=== PATIENT | female | born 1930 | race Caucasian/White ===

== ENCOUNTER 2018-11-08 00:17 | Observation (INO) ==
[2018-11-08] MEDS ORDERED: Ondansetron 4 MG/2 ML VIAL IVP PRN ×2 (00:40→19:06)
[2018-11-08] MEDS: 0.9 % Sodium Chloride 1,000 ML IVC SCH ×3 (02:09→19:08)
[2018-11-08 05:22] LABS: Basophils # 0.1 K/mcL (0.0-0.2); Basophils % 0.8 %; Eosinophils # 0.3 K/mcL (0.0-0.6); Eosinophils % 4.3 %; Hematocrit 29.6 % (35.3-44.9); Hemoglobin 8.8 g/dL (11.5-15.4); Immature Granulocytes % 0.4 % (0-4); Lymphocytes # 1.4 K/mcL (0.6-4.6); Lymphocytes % 18.9 %; Mean Corpuscular HGB Conc 29.7 g/dL (31.6-35.5); Mean Corpuscular Hemoglobin 25.1 pg (28.0-33.3); Mean Corpuscular Volume 84.3 fL (83.0-100.0); Mean Platelet Volume 10.2 fL (9.4-12.4); Monocytes # 0.4 K/mcL (0.0-1.3); Monocytes % 5.9 %; Neutrophils # 5.1 K/mcL (1.6-8.9); Platelet Count 203 K/mcL (140-400); Red Blood Count 3.51 M/mcL (3.82-4.97); Red Cell Distribution Width 17.4 % (11.5-14.5); Segmented Neutrophils % 69.7 %; White Blood Count 7.3 K/mcL (4.3-11.1)
[2018-11-08 05:40] LABS: Alanine Aminotransferase 7 Units/L (7-52); Albumin 3.5 g/dL (3.5-5.7); Albumin/Globulin Ratio 1.5 (1.1-2.2); Alkaline Phosphatase 65 Units/L (34-104); Aspartate Amino Transferase 10 Units/L (13-39); BUN/Creatinine Ratio 13 (6-26); Bilirubin,Total 0.4 mg/dL (0.3-1.0); Blood Urea Nitrogen 12 mg/dL (8-23); Calcium 8.5 mg/dL (8.6-10.3); Carbon Dioxide 25 mEq/L (23-29); Chloride 108 mEq/L (98-107); Globulin 2.4 g/dL (2.4-3.5); Glucose 105 mg/dL (70-105); Lipase 93 Units/L (11-82); Osmolality,Calculated 286 (280-300); Potassium 4.1 mEq/L (3.5-5.1); Sodium 138 mEq/L (136-145); Total Protein 5.9 g/dL (6.4-8.9); eGFR For African Americans > 60 (> 60); eGFR For Non-African Americans 57 (> 60)
[2018-11-08] MEDS: Piperacillin/Tazobactam 3.375 GM in 0.9 % Sodium Chloride Mini Bag 100 ML IVPB SCH ×2 (08:42→19:08)
[2018-11-08] MEDS ORDERED: Isovue-300 50ML VIAL ONE (14:51)
[2018-11-08] MEDS ORDERED: CefOXitin 1,000 MG VIAL ONE (15:00)
[2018-11-08] MEDS ORDERED: *HR* FentaNYL (PF) 100 MCG/2 ML VIAL ONE (15:03)
[2018-11-08] MEDS ORDERED: *HR* Propofol 200 MG/20 ML VIAL IVP ONE (15:03)
[2018-11-08] MEDS ORDERED: *HR* Rocuronium Bromide 50 MG/5 ML VIAL ONE (15:04)
[2018-11-08] MEDS ORDERED: Lidocaine -MPF 2% 2 ML VIAL ONE (15:04)
[2018-11-08] MEDS ORDERED: *HR* OxyCODONE Immed Rel 5 MG TABLET PO PRN (15:13)
[2018-11-08] MEDS ORDERED: *HR* Labetalol 20 MG/4 ML SYRINGE IVP PRN (15:13)
[2018-11-08] MEDS ORDERED: Ondansetron 4 MG/2 ML VIAL IVP ONE (15:13)
[2018-11-08] MEDS ORDERED: *HR* Promethazine 25 MG/ML VIAL IVP PRN (15:13)
[2018-11-08] MEDS ORDERED: CefOXitin 2,000 MG VIAL ONE (15:39)
[2018-11-08] MEDS ORDERED: EPHEDrine 50 MG/ML VIAL ONE (15:50)
[2018-11-08] MEDS ORDERED: Ondansetron 4 MG/2 ML VIAL ONE (15:53)
[2018-11-08] MEDS ORDERED: Dexamethasone 4 MG/ML VIAL ONE (16:05)
[2018-11-08] MEDS ORDERED: Neostigmine Methylsulfate 3 MG/3 ML SYRINGE ONE (16:23)
[2018-11-08] MEDS: *HR* HYDROmorphone (PF) 1 MG/ML SYRINGE IVP PRN ×2 (16:58→17:31)
[2018-11-09] MEDS: Piperacillin/Tazobactam 3.375 GM in 0.9 % Sodium Chloride Mini Bag 100 ML IVPB SCH ×2 (00:06→08:13)
[2018-11-09] MEDS: 0.9 % Sodium Chloride 1,000 ML IVC SCH ×2 (00:08→05:35)
[2018-11-09 06:43] VITALS: BP 180/78
== END 2018-11-09 11:08 | disposition home or self-care (01) ==
LOC: 3ANU
PROVIDERS: ADMIT Surgery; ATTEND Surgery

== ENCOUNTER 2018-11-28 14:57 | Inpatient (IN) ==
--- NOTE | 2018-11-28 15:58 | Emergency Department Note ---
Disposition Clinical Impression: Anemia Qualifiers: Anemia type: unspecified type Qualified Code(s): D64.9 - Anemia, unspecified GI bleed Qualifiers: GI bleed type/associated pathology: unspecified gastrointestinal hemorrhage type Qualified Code(s): K92.2 - Gastrointestinal hemorrhage, unspecified Disposition: Admitted As Inpatient Condition: Fair Referrals: Nilson Joseph MD [Primary Care Provider] - Forms: ED Satisfaction Letter Time of Disposition: 18:40 General Adult HPI - General Chief complaint: ED Recheck/Abnormal Lab/Rx Stated complaint: Abnormal Labs - Hemoglobin Time Seen by Provider: 11/28/18 15:17 Source: patient Limitations: no limitations Nursing Notes Reviewed: Yes Vital Signs Reviewed: Yes - History of Present Illness HPI Narrative: Presents with fatigue and dyspnea going on for the last 1 week and is constant and she did get her blood drawn today and hemoglobin reportedly was 7.3 so she was sent here. She does have a bruise on the dorsal aspect of her right hand but denies any blood in the urine or stool. No dark tarry stools. No bleeding of the gums when she brushes her teeth. She does not have any nose limits. States has not had anemia past. Denies any pain in the head, neck, chest, abdom en or back. Social history: Stopped smoking in 1979, drinks 1 glass of wine with dinner but not every night. Is here with the son and daughter Pain Scale: 0 - Related Data Previous Rx's Medication Instructions Recorded Oxycodone HCl/Acetaminophen 1 each PO Q6HR PRN 6 Days #20 11/09/18 [Percocet 5-325 mg Tablet] tablet Allergies Allergy/AdvReac Type Severity Reaction Status Date / Time No Known Allergies Allergy Verified 11/28/18 15:03 All systems ED: reviewed and negative except as stated. Past Medical History - Past Medical History Medical history: Reports: GERD, hypertension, thyroid disease Surgical history: Reports: hysterectomy Psychiatric history: Reports: no psych history - Social History Smoking Status: Never smoker Smokeless Tobacco Status: No Alcohol use: Reports: occasionally Drug use: Reports: none Physical Exam CONSTITUTIONAL: Alert and oriented X3, well-nourished, well appearing, in no apparent distress HEAD: Normocephalic; atraumatic. EYES: PERRL, no scleral icterus. NOSE: The nose is normal in appearance without rhinorrhea RESP: Normal chest excursion with respiration; breath sounds clear and equal bilaterally; no wheezes, rhonchi, or rales CARD: Regular rhythm, without murmurs, rub or gallop ABD: Non-distended; non-tender, soft,without rigidity, rebound or guarding SKIN: Normal for age and race; warm and dry; no apparent lesions except for 1 small bruise 1.5 cm in diameter on the dorsal aspect of the right hand - General Limitations: no limitations General appearance: alert, in no apparent distress Course Vital Signs Temperature 97.3 F L 11/28/18 15:01 Pulse Rate 77 11/28/18 15:01 Respiratory Rate 16 11/28/18 15:01 Blood Pressure 182/73 11/28/18 15:01 O2 Sat by Pulse Oximetry 100 11/28/18 15:01 Temperature 98.1 F 11/28/18 18:33 Pulse Rate 72 11/28/18 18:33 Respiratory Rate 18 11/28/18 18:33 Blood Pressure 154/66 11/28/18 18:33 O2 Sat by Pulse Oximetry 100 11/28/18 17:10 Oxygen Delivery Oxygen Delivery Room Air Medical Decision Making - MDM Narrative Medical decision making narrative: Labs will be done including hemoglobin and type and screen and saline well was placed and results are pending 1558 The patient does have some right-sided abdominal pain which developed after arr ival at the site of the cholecystectomy which was done about 3 weeks ago and with the new anemia which is not microcytic I will order a IV contrast CT to make sure there is no intra-abdominal bleeding. Results pending. Rectal exam has been done and there is brown stool on the glove. The Hemoccult is positive 1702 I spoke with the hospitalist who accepts the patient for admission due to the si gnificant anemia, the fact that the anemia is not a microcytic anemia suggestive more of an acute blood loss, the fact that she does have positive blood in the stool and that she is 88 years old. 183 - Medical Records Medical records reviewed: Yes I reviewed the patient's medical records. - Lab Data Lab results reviewed: Yes I reviewed the patient's lab results. Result diagrams: 11/28/18 16:00 11/28/18 16:00 Lab Results 11/28/18 11/28/18 11/28/18 Range/Units 16:00 16:00 16:00 WBC 4.6 (4.3-11.1) K/mcL RBC 2.59 L (3.82-4.97) M/mcL Hgb 6.7 L (11.5-15.4) g/dL Hct 22.0 L (35.3-44.9) % MCV 84.9 (83.0-100.0) fL MCH 25.9 L (28.0-33.3) pg MCHC 30.5 L (31.6-35.5) g/dL RDW 17.0 H (11.5-14.5) % Plt Count 255 (140-400) K/mcL MPV 10.3 (9.4-12.4) fL Sodium 136 (136-145) mEq/L Potassium 4.4 (3.5-5.1) mEq/L Chloride 105 (98-107) mEq/L Carbon Dioxide 25 (23-29) mEq/L BUN 28 H (8-23) mg/dL Creatinine 0.79 (0.60-1.20) mg/dL Est GFR ( Amer) > 60 (> 60) Est GFR (Non-Af Amer) > 60 (> 60) BUN/Creatinine Ratio 35 H (6-26) Glucose 106 H (70-105) mg/dL Calculated Osmolality 288 (280-300) Calcium 9.0 (8.6-10.3) mg/dL Stool Occult Bld Scrn (Negative) Blood Type O NEGATIVE Antibody Screen NEGATIVE Crossmatch See Detail 11/28/18 Range/Units 16:19 WBC (4.3-11.1) K/mcL RBC (3.82-4.97) M/mcL Hgb (11.5-15.4) g/dL Hct (35.3-44.9) % MCV (83.0-100.0) fL MCH (28.0-33.3) pg MCHC (31.6-35.5) g/dL RDW (11.5-14.5) % Plt Count (140-400) K/mcL MPV (9.4-12.4) fL Sodium (136-145) mEq/L Potassium (3.5-5.1) mEq/L Chloride (98-107) mEq/L Carbon Dioxide (23-29) mEq/L BUN (8-23) mg/dL Creatinine (0.60-1.20) mg/dL Est GFR ( Amer) (> 60) Est GFR (Non-Af Amer) (> 60) BUN/Creatinine Ratio (6-26) Glucose (70-105) mg/dL Calculated Osmolality (280-300) Calcium (8.6-10.3) mg/dL Stool Occult Bld Scrn Positive A (Negative) Blood Type Antibody Screen Crossmatch
[2018-11-28 16:23] LABS: Hemoglobin 6.7 g/dL (11.5-15.4); Mean Corpuscular HGB Conc 30.5 g/dL (31.6-35.5); Mean Corpuscular Hemoglobin 25.9 pg (28.0-33.3); Mean Corpuscular Volume 84.9 fL (83.0-100.0); Mean Platelet Volume 10.3 fL (9.4-12.4); Platelet Count 255 K/mcL (140-400); Red Blood Count 2.59 M/mcL (3.82-4.97); White Blood Count 4.6 K/mcL (4.3-11.1)
[2018-11-28 16:46] LABS: BUN/Creatinine Ratio 35 (6-26); Blood Urea Nitrogen 28 mg/dL (8-23); Carbon Dioxide 25 mEq/L (23-29); Chloride 105 mEq/L (98-107); Glucose 106 mg/dL (70-105); Osmolality,Calculated 288 (280-300); Potassium 4.4 mEq/L (3.5-5.1); Sodium 136 mEq/L (136-145); eGFR For African Americans > 60 (> 60); eGFR For Non-African Americans > 60 (> 60)
[2018-11-28] MEDS ORDERED: Isovue-370 500 ML BOTTLE IVP ONE (16:58)
[2018-11-28] MEDS ORDERED: 0.9 % Sodium Chloride 250 ML ONE ×2 (18:28→21:56)
[2018-11-29] MEDS ORDERED: Naloxone 0.4 MG/ML INJ IVP PRN (02:39)
--- NOTE | 2018-11-29 02:43 | Internal Med History&Physical ---
Date of Encounter: 11/29/18 Time of Encounter: 01:00 Internal Medicine - H&P: HPI Chief complaint: GI bleed Admitted From: Emergency Dept Plans for Post Hospital Care: Home History of present illness: Ms. Monroy is a 88 year old female Patient presented to the emergency department after being seen at her PCPs office. She had lab work performed there, they contacted her at her home and recommended she come to the emergency department because she had a low hemoglobin. She had recently undergone gallbladder surgery about 3 weeks ago and had been feeling increasingly weak over the last couple of days. She says that when she tries to stand that her legs would not support her. She has never had a GI bleed before and, has not required blood transfusions in the past. She had no known complications from her surgery. In the emergency department patient's initial vital signs: Temperature 97.3, pulse 77, respiratory rate 16, blood pressure 182/73, O2 saturation 100% on room air CBC notable for a hemoglobin of 6.7. BMP unremarkable Stool occult blood test positive Abdomen pelvis CT was performed IMPRESSION: There is no postoperative fluid collections status post recent cholecystectomy. There is minimal dilatation of intrahepatic bile ducts and mild dilatation of the common duct status post cholecystectomy. Few sigmoid colon diverticula. No evidence of diverticulitis. Mild gas and stool load throughout the redundant colon. 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 Patient was typed and screened in the emergency department and she was given 2 units of PRBCs. She was admitted to the hospital for further management. Upon my evaluation, patient is resting comfortably in hospital bed in no acute distress. She denies chest pain, abdominal pain, nausea, vomiting, diarrhea and constipation. She denies blood in her urine and stool, and has no other signs of bleeding that she can think of. She is a DNR/DNI. Past Med Surg Social Fam HX - Past Medical History Medical history: GERD, hypertension, thyroid disease Additional medical history: Crohns Psychiatric history: no psych history - Past Surgical History Surgical History: hysterectomy - Social History Smoking Status: Former smoker Smokeless Tobacco Status: No Alcohol use: occasionally Drug use: none Internal Medicine - H&P: Meds Aspirin [[place] Aspirin EC] 81 mg PO DAILY 11/28/18 [History] Lisinopril [Zestril] 10 mg PO DAILY 11/28/18 [History] Allergy/AdvReac Type Severity Reaction Status Date / Time No Known Allergies Allergy Verified 11/28/18 15:03 All Systems PM: A 10-system review of systems was performed and is negative for pertinent fin dings except as documented above in the HPI. - Constitutional Vitals: Temp Pulse Resp BP Pulse Ox 98.3 F 68 16 134/76 98 11/29/18 00:29 11/29/18 00:29 11/29/18 00:29 11/29/18 00:11/29/18 00:29 General appearance: Present: cooperative, A&O X 3, pleasant, no acute distress, answers questions appropriately Exam: - - Head Head exam: Present: normal inspection - Eye Eye exam: Present: EOMI, normal appearance. Absent: conjuntiva pink Additional comments: Pale conjunctiva - Respiratory Respiratory exam: Present: CTAB. Absent: rales, respiratory distress, rhonchi, wheezes - Cardiovascular Cardiovascular exam: Present: RRR, systolic murmur. Absent: diastolic murmur Additional comments: Grade 2 systolic murmur - GI/Abdominal GI/Abdominal exam: Present: normal bowel sounds, soft. Absent: tenderness - Extremities Exam Extremities exam: Present: warm, radial pulses palpable and symmetrical. Absent: calf tenderness, pedal edema, tenderness - Neurological Exam Neurological exam: Present: no focal deficits, strengths equal and symetr throughout. Absent: motor sensory deficit, facial droop, speech deficit - Skin Skin exam: Present: dry, normal color, pallor, warm Internal Med - H&P Results - Labs CBC & Chem 7: 11/28/18 16:00 11/28/18 16:00 Labs: Short CBC 11/28/18 Range/Units 16:00 WBC 4.6 (4.3-11.1) K/mcL Hgb 6.7 L (11.5-15.4) g/dL Hct 22.0 L (35.3-44.9) % Plt Count 255 (140-400) K/mcL BMP 11/28/18 16:00 Sodium 136 Potassium 4.4 Chloride 105 Carbon Dioxide 25 BUN 28 H Creatinine 0.79 Glucose 106 H Calcium 9.0 - Impressions ITS Impressions Abdomen/Pelvis CT 11/28/18 16:58 IMPRESSION: There is no postoperative fluid collections status post recent cholecystectomy. There is minimal dilatation of intrahepatic bile ducts and mild dilatation of the common duct status post cholecystectomy. Few sigmoid colon diverticula. No evidence of diverticulitis. Mild gas and stool load throughout the redundant colon. 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 D/ / Mario Porras MD / Mario Porras MD Interpreting Provider: Mario Porras MD - Assessment and Plan (1) GI bleed Current Visit: Yes Status: Acute Assessment and plan: Stool occult blood positive. Patient has never had a GI bleed in the past. She has had colonoscopies in the past but does not remember exactly when. Of note, patient does have a history of Crohn's disease, but no evidence of colitis on her CT. GI consult Patient transfused 2 units of PRBCs Repeat CBC Continue to transfuse if indicated Qualifiers: GI bleed type/associated pathology: unspecified gastrointestinal hemorrhage type Qualified Code(s): K92.2 - Gastrointestinal hemorrhage, unspecified (2) History of recent surgery Current Visit: Yes Status: Acute Assessment and plan: Patient recently had gallbladder surgery. Abdominal CT shows no complications. (3) Anemia Current Visit: Yes Status: Acute Assessment and plan: Likely secondary to GI bleed. GI consult in the morning Transfusing as above Monitor hemoglobin Qualifiers: Anemia type: unspecified type Qualified Code(s): D64.9 - Anemia, unspecified (4) DVT prophylaxis Current Visit: Yes Status: Acute Assessment and plan: SCDs - Time Spent With Patient Total time spent is greater than 50% in coordination of care (as documented) at patient's floor/unit and/or counseling patient:
[2018-11-29 04:24] LABS: Hematocrit 29.8 % (35.3-44.9); Mean Corpuscular HGB Conc 32.6 g/dL (31.6-35.5); Mean Corpuscular Hemoglobin 28.4 pg (28.0-33.3); Mean Corpuscular Volume 87.1 fL (83.0-100.0); Mean Platelet Volume 9.7 fL (9.4-12.4); Platelet Count 197 K/mcL (140-400); Red Blood Count 3.42 M/mcL (3.82-4.97); Red Cell Distribution Width 15.7 % (11.5-14.5); White Blood Count 5.2 K/mcL (4.3-11.1)
[2018-11-29 04:34] LABS: Hemoglobin 9.7 g/dL (11.5-15.4)
[2018-11-29 04:46] LABS: BUN/Creatinine Ratio 29 (6-26); Blood Urea Nitrogen 23 mg/dL (8-23); Calcium 8.6 mg/dL (8.6-10.3); Carbon Dioxide 24 mEq/L (23-29); Chloride 107 mEq/L (98-107); Glucose 101 mg/dL (70-105); Osmolality,Calculated 286 (280-300); Potassium 4.4 mEq/L (3.5-5.1); Sodium 136 mEq/L (136-145); eGFR For African Americans > 60 (> 60); eGFR For Non-African Americans > 60 (> 60)
--- NOTE | 2018-11-29 09:21 | Event Note ---
Date of Encounter: 11/29/18 Time of Encounter: 09:19 88-year-old female recently undergone gallbladder surgery, seen by PCP yesterday, labs revealing hemoglobin 6.7, was called by PCP and directed to ED for admission for severe anemia. Stool for occult blood was positive. Patient received 2 unit PRBC, repeat hemoglobin 9.7. GI was consulted, planning for EGD/colonoscopy in the morning.
--- NOTE | 2018-11-29 10:02 | Gastroenterology Consult Note ---
<AbramsBear preston Alexus - Last Filed: 11/29/18 10:00> Date of Encounter: 11/29/18 Time of Encounter: 08:45 - Assessment and plan (1) Anemia Current Visit: Yes Status: Acute Assessment and plan: Hgb on admission here was 6.7 with MCV 84.9 and FOBT positive. Patient received two units PRBC. Hgb 9.7 this AM. Continue to monitor CBC and transfuse PRBC as needed. Plan for EGD and colonoscopy tomorrow. Clear liquid diet today, no red or purple. NPO at midnight. If unable tolerate NuLytely please use MiraLAX prep. If not clear by 6 AM, give 2 tap water enemas. Qualifiers: Anemia type: unspecified type Qualified Code(s): D64.9 - Anemia, unspecified (2) Diverticulosis Current Visit: Yes Status: Acute Assessment and plan: Noted on CT. Recommend daily fiber supplement. - Time Spent With Patient Total time spent is greater than 50% in coordination of care (as documented) at patient's floor/unit and/or counseling patient: GI History of Present Illness - Data of Consult Patient: new to practice Consult date: 11/29/18 Requesting Physician: Doug Batres - Consult Narrative Reason for consult: Anemia History of present illness: Ms. Monroy is a 88 year old female with PMHx of GERD, HTN, who was sent to the ED from his PCP office due to anemia. Hgb on admission here was 6.7 with MCV 84.9 and FOBT positive. After two units PRBC Hgb 9.7 this AM. She complains of worsening weakness over the past few days and felt like her legs would not hold her up. She denies any melena or hematochezia. CT A/P shows no postoperative fluid collections status post recent cholecystectomy, minimal dilatation of intrahepatic bile ducts and mild dilatation of the common duct status post cholecystectomy, few sigmoid colon diverticula, no evidence of diverticulitis. She denies fever, chills, chest pain, abdominal pain, nausea, vomiting, diarrhea, or constipation. Procedures: None NSAIDs: ASA Anticoagulation: None Past Med Surg Social Fam HX - Past Medical History Medical history: GERD, hypertension, thyroid disease Additional medical history: Crohns Psychiatric history: no psych history - Past Surgical History Surgical History: hysterectomy - Social History Smoking Status: Former smoker Smokeless Tobacco Status: No Alcohol use: occasionally Drug use: none - Gastrointestinal Gastrointestinal: Present: as per HPI - Constitutional Constitutional: as per HPI - EENT Eyes: as per HPI Ears: Present: as per HPI Nose, mouth and throat: Present: as per HPI - Cardiovascular Cardiovascular ROS: Present: as per HPI - Respiratory Respiratory IM: Present: as per HPI - Genitourinary Genitourinary: Absent: change in color, Urinary frequency - Neurological ROS Neurological GI: Present: as per HPI - Hematologic/Lymphatic Hematologic/Lymphatic pediatric: Present: as per HPI - Musculoskeletal Musculoskeletal ROS GI: Present: as per HPI - Integumentary Integumentary GI: Present: as per HPI - Psychiatric ROS Psychiatric GI: Present: as per HPI - Endocrine Endocrine IM: Present: as per HPI - Constitutional Vitals: Temp Pulse Resp BP Pulse Ox 98.3 F 72 14 131/65 97 11/29/18 07:29 11/29/18 07:29 11/29/18 07:29 11/29/18 07:29 11/29/18 07:29 General appearance: Present: cooperative, A&O X 3, no acute distress, answers questions appropriately - Head Head exam: Present: atraumatic, normocephalic - Eye Eye exam: Present: normal appearance, sclera anicteric - ENT ENT exam: Present: mucous membranes moist - Neck Neck exam general surgery: Present: normal inspection, trachea midline - Respiratory Respiratory exam: Present: CTAB. Absent: rales, rhonchi, wheezes - Cardiovascular Cardiovascular exam: Present: RRR, +S1, +S2 - GI/Abdominal GI/Abdominal exam: Present: soft, no peritoneal signs. Absent: distended, firm, guarding, tenderness - Rectal Rectal exam: Present: deferred - Extremities Exam Extremities exam: Present: warm - Neurological Exam Neurological exam: Present: no focal deficits - Psychiatric Psychiatric exam: Present: normal affect, normal mood - Skin Skin exam: Present: dry, intact, normal color, warm Results - Labs CBC & Chem 7: 11/29/18 04:13 11/29/18 04:13 Labs: Last Result 11/29/18 04:13 Calcium 8.6 Entire Visit 11/29/18 04:13 Hgb 9.7 L D Hct 29.8 L - Impressions Impressions Abdomen/Pelvis CT 11/28/18 16:58 IMPRESSION: There is no postoperative fluid collections status post recent cholecystectomy. There is minimal dilatation of intrahepatic bile ducts and mild dilatation of the common duct status post cholecystectomy. Few sigmoid colon diverticula. No evidence of diverticulitis. Mild gas and stool load throughout the redundant colon. 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 D/ / Mario Porras MD / Mario Porras MD Interpreting Provider: Mario Porras MD Consult Discharge Plan - Plan Referrals: Buzz Ramos MD [Partnered Physician] - 12/03/18 9:20 am Nilson Joseph MD [Primary Care Provider] - 12/09/18 8:40 am <Calista Mcmillan - Last Filed: 11/29/18 19:30> Date of Encounter: 11/29/18 Time of Encounter: 12:00 - Time Spent With Patient Total time spent is greater than 50% in coordination of care (as documented) at patient's floor/unit and/or counseling patient: GI History of Present Illness - Data of Consult Requesting Physician: Doug Batres - Consult Narrative History of present illness: Ms. Monroy is a 88 year old female - Constitutional Vitals: Temp Pulse Resp BP Pulse Ox 97.5 F L 70 14 194/80 100 11/29/18 18:25 11/29/18 18:25 11/29/18 18:25 11/29/18 18:25 11/29/18 18:25 Results - Labs CBC & Chem 7: 11/29/18 04:13 11/29/18 04:13 - Attending Attestation I have personally performed a face to face evaluation on this patient. I have reviewed and agree with the care plan. History and Exam by me shows: Pt seen. No abd jorge, no overt GI bleed. o/E : abd soft. A: pt with anemia. Rec: EGD/Colon
[2018-11-29] MEDS ORDERED: SODIUM CHLORIDE/NAHCO3/KCL/PEG 4,000 ML SOLN.RECON PO ONE (17:00)
[2018-11-30] MEDS ORDERED: Ondansetron ODT 4 MG TAB.RAPDIS SL PRN (00:19)
[2018-11-30 05:48] LABS: Basophils % 0.9 %; Eosinophils # 0.2 K/mcL (0.0-0.6); Eosinophils % 3.7 %; Hematocrit 31.4 % (35.3-44.9); Hemoglobin 9.9 g/dL (11.5-15.4); Immature Granulocytes % 0.4 % (0-4); Lymphocytes # 1.4 K/mcL (0.6-4.6); Lymphocytes % 30.6 %; Mean Corpuscular HGB Conc 31.5 g/dL (31.6-35.5); Mean Corpuscular Hemoglobin 27.1 pg (28.0-33.3); Monocytes # 0.4 K/mcL (0.0-1.3); Monocytes % 8.7 %; Neutrophils # 2.6 K/mcL (1.6-8.9); Platelet Count 231 K/mcL (140-400); Red Blood Count 3.65 M/mcL (3.82-4.97); Red Cell Distribution Width 15.9 % (11.5-14.5); Segmented Neutrophils % 55.7 %; White Blood Count 4.6 K/mcL (4.3-11.1)
[2018-11-30 06:06] LABS: BUN/Creatinine Ratio 20 (6-26); Blood Urea Nitrogen 16 mg/dL (8-23); Calcium 8.8 mg/dL (8.6-10.3); Carbon Dioxide 25 mEq/L (23-29); Chloride 106 mEq/L (98-107); Glucose 108 mg/dL (70-105); Osmolality,Calculated 284 (280-300); Potassium 3.8 mEq/L (3.5-5.1); Sodium 136 mEq/L (136-145); eGFR For African Americans > 60 (> 60); eGFR For Non-African Americans > 60 (> 60)
--- NOTE | 2018-11-30 09:28 | Internal Med Progress Note ---
Hospitalist Progress Note - Encounter Date of Encounter: 11/30/18 Time of Encounter: 09:26 - Subjective Interval History: 88-year-old female recently undergone gallbladder surgery, seen by PCP yesterday, labs revealing hemoglobin 6.7, was called by PCP and directed to ED for admission for severe anemia. Stool for occult blood was positive. Patient received 2 unit PRBC, repeat hemoglobin 9.7. GI was consulted, planning for EGD/colonoscopy today. Patient seen and examined in room. She reported absence of black stool or bloody stool. Reported absence of fever, chills, night sweats, absence of abdominal pain, nausea/vomiting, and diarrhea. - Exam Vitals: Temp Pulse Resp BP Pulse Ox 98.7 F 64 18 164/69 96 11/30/18 07:04 11/30/18 07:04 11/30/18 07:04 11/30/18 07:04 11/30/18 07:04 Exam: - - Assessment and Plan (1) Anemia Current Visit: Yes Status: Acute Assessment and Plan: Likely secondary to GI bleed. Patient received a 2 unit PRBC yesterday, hemoglobin this morning 9.9. EGD/colonoscopy today. (2) GI bleed Current Visit: Yes Status: Acute Assessment and Plan: Continue IV PPI. EGD/colonoscopy today. Continue monitoring H/H. (3) History of recent surgery Current Visit: No Status: Chronic Assessment and Plan: Patient recently had gallbladder surgery. Abdominal CT shows no complications. (4) DVT prophylaxis Current Visit: Yes Status: Acute Assessment and Plan: SCDs - Time Spent with Patient Total time spent is greater than 50% in coordination of care (as documented) at patient's floor/unit and/or counseling patient: Greater than 35 minutes Plan of Care Discussed with: patient Internal Medicine: Result - Labs CBC & Chem 7: 11/30/18 05:13 11/30/18 05:13 Labs: Short CBC 11/30/18 Range/Units 05:13 WBC 4.6 (4.3-11.1) K/mcL Hgb 9.9 L (11.5-15.4) g/dL Hct 31.4 L (35.3-44.9) % Plt Count 231 (140-400) K/mcL Neutrophils # 2.6 (1.6-8.9) K/mcL BMP 11/30/18 05:13 Sodium 136 Potassium 3.8 Chloride 106 Carbon Dioxide 25 BUN 16 Creatinine 0.79 Glucose 108 H Calcium 8.8 Consult Discharge Plan - Plan Referrals: Buzz Ramos MD [Partnered Physician] - 12/03/18 9:20 am Nilson Joseph MD [Primary Care Provider] - 12/09/18 8:40 am (1) Anemia Qualifiers: Anemia type: unspecified type Qualified Code(s): D64.9 - Anemia, unspecified (2) GI bleed Qualifiers: GI bleed type/associated pathology: unspecified gastrointestinal hemorrhage type Qualified Code(s): K92.2 - Gastrointestinal hemorrhage, unspecified
--- NOTE | 2018-11-30 09:42 | Anesthesia Evaluation PreOp ---
Date of Encounter: 11/30/18 Time of Encounter: 09:40 - Past History Planned Operation: EGD, Colonoscopy Cardiac History: Denies any Significant Hx, HTN Pulmonary History: Denies Any Significant HX RIDDLER OPERATOR History: Denies Any Significant HX Other Medical History: Thyroid, GERD, Other (crohns) Anesthesia History: No Prior Anesthetic Complications, Past Anesthesia (Hyst, [place] 11/11) Alcohol Use: occasionally Drug use: none Medications and Allergies Aspirin [[place] Aspirin EC] 81 mg PO DAILY 11/28/18 [History] Lisinopril [Zestril] 10 mg PO DAILY 11/28/18 [History] Allergy/AdvReac Type Severity Reaction Status Date / Time No Known Allergies Allergy Verified 11/28/18 15:03 - Meds/Allergy Pre-op Review Medications Reviewed: Yes Allergies Reviewed: Yes Beta Blockers on Current Med List: No Anesthesia Results - Labs 11/30/18 05:13 11/30/18 05:13 Hb 6.7 before recieving 2 PRBC Anesthesia Exam Vital Signs/O2 Sat, Most Current Temp Pulse Resp BP Pulse Ox 98.7 F 64 18 164/69 96 11/30/18 07:04 11/30/18 07:04 11/30/18 07:04 11/30/18 07:04 11/30/18 07:04 - HEENT Pupil (Motor): Pupils equal, EOMI Mallampati: II Teeth: Edentulous Oral Opening: Greater than 3 - RIDDLER OPERATOR LOC: Oriented RIDDLER OPERATOR Motor: Normal RUE, Normal LUE, Normal RLE, Normal LLE, Normal Face RIDDLER OPERATOR Sensory: Normal: RUE, LUE, RLE, LLE, Face - Cardiac Rhythm: Regular Murmur: None JVD: No - Pulmonary Breath Sounds: bilateral Clear Respiratory Effort: Symmetrical Anesthesia Assess/Plan ASA Score: 3 Level of consciousness: Cooperative Anesthetic Plan: MAC Monitoring Plan: Standard Monitors Recovery Plan: Other (floor)
[2018-11-30] MEDS ORDERED: *HR* Propofol 200 MG/20 ML VIAL IVP ONE (09:59)
[2018-11-30] MEDS ORDERED: Lidocaine -MPF 2% 2 ML VIAL ONE (09:59)
[2018-11-30] MEDS ORDERED: 0.9 % Sodium Chloride 500 ML IVC SCH (10:15)
[2018-11-30] MEDS: Pantoprazole 40 MG VIAL IVP SCH (17:50)
[2018-12-01 04:48] LABS: Hematocrit 31.4 % (35.3-44.9); Hemoglobin 9.8 g/dL (11.5-15.4); Mean Corpuscular HGB Conc 31.2 g/dL (31.6-35.5); Mean Corpuscular Hemoglobin 27.1 pg (28.0-33.3); Mean Platelet Volume 10.2 fL (9.4-12.4); Platelet Count 227 K/mcL (140-400); Red Blood Count 3.61 M/mcL (3.82-4.97); Red Cell Distribution Width 16.2 % (11.5-14.5); White Blood Count 6.4 K/mcL (4.3-11.1)
[2018-12-01 05:03] LABS: BUN/Creatinine Ratio 13 (6-26); Blood Urea Nitrogen 12 mg/dL (8-23); Calcium 8.7 mg/dL (8.6-10.3); Carbon Dioxide 24 mEq/L (23-29); Chloride 104 mEq/L (98-107); Glucose 112 mg/dL (70-105); Osmolality,Calculated 285 (280-300); Potassium 3.7 mEq/L (3.5-5.1); Sodium 137 mEq/L (136-145); eGFR For African Americans > 60 (> 60); eGFR For Non-African Americans 60 (> 60)
[2018-12-01] MEDS: Pantoprazole 40 MG VIAL IVP SCH (05:36)
[2018-12-01] MEDS ORDERED: Aspirin Enteric Coated 81 MG Tablet PO SCH (09:00)
--- NOTE | 2018-12-01 10:55 | Internal Med Progress Note ---
Hospitalist Progress Note - Encounter Date of Encounter: 12/01/18 Time of Encounter: 10:52 - Subjective Interval History: 88-year-old female recently undergone gallbladder surgery, seen by PCP yesterday, labs revealing hemoglobin 6.7, was called by PCP and directed to ED for admission for severe anemia. Stool for occult blood was positive. Patient received 2 unit PRBC, repeat hemoglobin 9.7. GI was consulted, EGD and a colonoscopy were performed on 11/30. EGD showed mild reflux esophagitis. Colonoscopy revealed several polyps which was biopsied. No active bleeding site was identified on both studies. She was placed on PPI. Patient seen and examined in room. She reported absence of black stool or bloody stool. Reported absence of fever, chills, night sweats, absence of abdominal pain, nausea/vomiting, and diarrhea. We will continue monitoring H/H, She will be discharged home tomorrow. - Exam Vitals: Temp Pulse Resp BP Pulse Ox 97.8 F 68 14 124/51 97 12/01/18 07:43 12/01/18 07:43 12/01/18 07:43 12/01/18 07:43 12/01/18 07:43 Exam: PHYSICAL EXAMINATION: GENERAL APPEARANCE: The patient is alert, oriented and in no acute distress. HEENT: Head is normocephalic. The sinuses are nontender. Pupils are equal and reactive. The nares are patent. Oropharynx clear without lesions. NECK: Supple without lymphadenopathy. HEART: Regular rate and rhythm. LUNGS: No crackles or wheezes are heard. ABDOMEN: Soft, nontender, nondistended with good bowel sounds heard. Inguinal area is normal. EXTREMITIES: Without cyanosis, clubbing or edema. NEUROLOGICAL: Gross nonfocal. SKIN: Warm and dry without any rash. - Assessment and Plan (1) Anemia Current Visit: Yes Status: Acute Assessment and Plan: Likely secondary to GI bleed. Patient received a 2 unit PRBC yesterday, hemoglobin this morning 9.8. EGD/colonoscopy no active bleeding, mild reflux esophagitis, multiple polyps in the colon. She was started on PPI, advance diet to regular diet, check iron panel today. Likely will be DC'd in the morning. (2) GI bleed Current Visit: Yes Status: Acute Assessment and Plan: EGD/colonoscopy active bleeding site except mild reflux esophagitis and multiple colonic polyps. Continue PPI. Continue monitoring H/H. (3) History of recent surgery Current Visit: No Status: Chronic Assessment and Plan: Patient recently had gallbladder surgery. Abdominal CT shows no complications. (4) DVT prophylaxis Current Visit: Yes Status: Acute Assessment and Plan: SCDs - Time Spent with Patient Total time spent is greater than 50% in coordination of care (as documented) at patient's floor/unit and/or counseling patient: Greater than 35 minutes Plan of Care Discussed with: patient Internal Medicine: Result - Labs CBC & Chem 7: 12/01/18 04:25 12/01/18 04:25 Labs: Short CBC 12/01/18 Range/Units 04:25 WBC 6.4 (4.3-11.1) K/mcL Hgb 9.8 L (11.5-15.4) g/dL Hct 31.4 L (35.3-44.9) % Plt Count 227 (140-400) K/mcL BMP 12/01/18 04:25 Sodium 137 Potassium 3.7 Chloride 104 Carbon Dioxide 24 BUN 12 Creatinine 0.89 Glucose 112 H Calcium 8.7 Consult Discharge Plan - Plan Referrals: Buzz Ramos MD [Partnered Physician] - 12/03/18 9:20 am Nilson Joseph MD [Primary Care Provider] - 12/09/18 8:40 am __ (1) Anemia Qualifiers: Anemia type: unspecified type Qualified Code(s): D64.9 - Anemia, unspecified (2) GI bleed Qualifiers: GI bleed type/associated pathology: unspecified gastrointestinal hemorrhage type Qualified Code(s): K92.2 - Gastrointestinal hemorrhage, unspecified
[2018-12-01 12:02] LABS: % Iron Saturation 6 % (15-50); Iron 22 mcg/dL (50-170); Transferrin 277 mg/dL (203-362)
[2018-12-01 12:20] LABS: Ferritin 24 ng/mL (10-120)
[2018-12-02 05:27] LABS: Hematocrit 29.9 % (35.3-44.9); Hemoglobin 9.6 g/dL (11.5-15.4); Mean Corpuscular HGB Conc 32.1 g/dL (31.6-35.5); Mean Corpuscular Hemoglobin 28.2 pg (28.0-33.3); Mean Corpuscular Volume 87.7 fL (83.0-100.0); Mean Platelet Volume 10.3 fL (9.4-12.4); Platelet Count 200 K/mcL (140-400); Red Blood Count 3.41 M/mcL (3.82-4.97); Red Cell Distribution Width 16.3 % (11.5-14.5); White Blood Count 5.7 K/mcL (4.3-11.1)
[2018-12-02 05:39] LABS: Calcium 8.6 mg/dL (8.6-10.3); Potassium 4.2 mEq/L (3.5-5.1)
[2018-12-02 06:37] VITALS: BP 103/62
--- NOTE | 2018-12-02 08:06 | Discharge Summary ---
- NOTES TO OUTPATIENT PROVIDER Notes to Outpatient Provider: f/u with PCP within a week to check H/H. f/u with GI within 3 weeks for pathology report. Orders not resulted at time of discharge: Pending orders 11/30/18 11:05 Surgical Pathology [PTH] Routine Date of Encounter: 12/02/18 Time of Encounter: 08:04 - Discharge Diagnosis (1) Anemia Priority: Primary Status: Acute Qualifiers: Anemia type: iron deficiency Qualified Code(s): D50.9 - Iron deficiency anemia, unspecified (2) GI bleed Priority: Primary Status: Acute Qualifiers: GI bleed type/associated pathology: unspecified gastrointestinal hemorrhage type Qualified Code(s): K92.2 - Gastrointestinal hemorrhage, unspecified (3) History of recent surgery Priority: Secondary Status: Chronic (4) DVT prophylaxis Priority: Primary Status: Acute (5) Iron deficiency anemia Priority: Primary Status: Acute Qualifiers: Iron deficiency anemia type: unspecified iron deficiency Qualified Code(s): D50.9 - Iron deficiency anemia, unspecified Hospital course: Ms. Monroy is a 88 year old female recently undergone gallbladder surgery, seen by PCP, labs revealing hemoglobin 6.7, was called by PCP and directed to ED for admission for severe anemia. Stool for occult blood was positive. Patient received 2 unit PRBC, repeat hemoglobin 9.7. GI was consulted, EGD and colonoscopy were performed on 11/30. EGD showed mild reflux esophagitis. Colonoscopy revealed several polyps which was biopsied. No active bleeding site was identified on both studies. She was placed on PPI. Labs test showed low serum iron level, iron supplement started. Patient was kept in the hospital, serial H/H has been stable at 9.6 for 3 days. She reported absence of black tarry stool, blood in the stool, or hematemsis. Patient is discharged home today, prescription for iron supplement and Prilosec were provided, she will follow-up with PCP within a week to repeat H/H, she will follow up with GI within 3 weeks for pathology report. Discharge discussed with: patient Time spent discussing smoking cessation with patient: more than 10 minutes - Time Spent with Patient Total time spent providing and/or coordinating discharge services: Time spent: Greater than 30 minutes - Discharge Medications Prescriptions: New Omeprazole [PriLOSEC] 40 mg PO DAILY #30 cap Ferrous Sulfate 325 mg PO BID #60 tablet Continued Lisinopril [Zestril] 10 mg PO DAILY Aspirin [[place] Aspirin EC] 81 mg PO DAILY Home Medications: Aspirin [[place] Aspirin EC] 81 mg PO DAILY 11/28/18 [History] Lisinopril [Zestril] 10 mg PO DAILY 11/28/18 [History] Ferrous Sulfate 325 mg PO BID #60 tablet 12/02/18 [Rx] Omeprazole [PriLOSEC] 40 mg PO DAILY #30 cap 12/02/18 [Rx] Allergies/Adverse Reactions: Allergy/AdvReac Type Severity Reaction Status Date / Time No Known Allergies Allergy Verified 11/28/18 15:03 Date of admission: 11/30/18 17:04 Primary care physician: Nilson Joseph MD Consults: 11/29/18 02:40 Consult to Gastroenterology [CONS] Routine Consulting Provider: Gastroenterology Corinne Reason for Consult: GI bleed Call Completed: No Anticipated date of discharge: 12/02/18 - Constitutional Vitals: Temp Pulse Resp BP Pulse Ox 97.7 F 64 15 103/62 98 12/02/18 06:29 12/02/18 06:29 12/02/18 06:29 12/02/18 06:29 12/02/18 06:29 General appearance: Present: cooperative, A&O X 3, pleasant, no acute distress, answers questions appropriately Exam: PHYSICAL EXAMINATION: GENERAL APPEARANCE: The patient is alert, oriented and in no acute distress. HEENT: Head is normocephalic. The sinuses are nontender. Pupils are equal and reactive. The nares are patent. Oropharynx clear without lesions. NECK: Supple without lymphadenopathy. HEART: Regular rate and rhythm. LUNGS: No crackles or wheezes are heard. ABDOMEN: Soft, nontender, nondistended with good bowel sounds heard. Inguinal area is normal. EXTREMITIES: Without cyanosis, clubbing or edema. NEUROLOGICAL: Gross nonfocal. SKIN: Warm and dry without any rash. - Patient Status Disposition: Home, Self-Care Condition: Fair Functional capacity at discharge: independent ambulation Overall status at discharge: patient is progressing back to baseline - Discharge Instructions Follow Up With: Buzz Ramos MD [Partnered Physician] - 12/03/18 9:20 am Nilson Joseph MD [Primary Care Provider] - 12/09/18 8:40 am - Diet and Activity Activity: increase activity as tolerated Diet: advance to your usual diet
== END 2018-12-02 09:28 | disposition home or self-care (01) | DRG 392 ==
LOC: EMEROOARM 14:57 → 3BNU 14:57
PROVIDERS: ADMIT Internal Medicine; ATTEND Internal Medicine
PROC: ENDOCBX (2018-11-30 08:45)

== ENCOUNTER 2018-12-12 11:40 | Observation (INO) ==
[2018-12-12 12:27] LABS: Basophils % 0.5 %; Eosinophils # 0.1 K/mcL (0.0-0.6); Eosinophils % 0.8 %; Hematocrit 21.2 % (35.3-44.9); Hemoglobin 6.6 g/dL (11.5-15.4); Immature Granulocytes % 0.4 % (0-4); Lymphocytes # 1.9 K/mcL (0.6-4.6); Lymphocytes % 24.6 %; Mean Corpuscular HGB Conc 31.1 g/dL (31.6-35.5); Mean Corpuscular Hemoglobin 27.3 pg (28.0-33.3); Mean Corpuscular Volume 87.6 fL (83.0-100.0); Mean Platelet Volume 10.6 fL (9.4-12.4); Monocytes # 0.4 K/mcL (0.0-1.3); Monocytes % 5.8 %; Neutrophils # 5.2 K/mcL (1.6-8.9); Platelet Count 256 K/mcL (140-400); Red Blood Count 2.42 M/mcL (3.82-4.97); Red Cell Distribution Width 15.9 % (11.5-14.5); Segmented Neutrophils % 67.9 %; White Blood Count 7.6 K/mcL (4.3-11.1)
[2018-12-12 12:43] LABS: Alanine Aminotransferase 9 Units/L (7-52); Albumin 3.8 g/dL (3.5-5.7); Albumin/Globulin Ratio 1.6 (1.1-2.2); Alkaline Phosphatase 82 Units/L (34-104); Aspartate Amino Transferase 11 Units/L (13-39); BUN/Creatinine Ratio 24 (6-26); Bilirubin,Total 0.3 mg/dL (0.3-1.0); Blood Urea Nitrogen 19 mg/dL (8-23); Carbon Dioxide 25 mEq/L (23-29); Chloride 102 mEq/L (98-107); Globulin 2.4 g/dL (2.4-3.5); Glucose 130 mg/dL (70-105); Osmolality,Calculated 288 (280-300); Potassium 4.2 mEq/L (3.5-5.1); Sodium 137 mEq/L (136-145); Total Protein 6.2 g/dL (6.4-8.9); Troponin I < 0.03 ng/mL (< 0.04); eGFR For African Americans > 60 (> 60); eGFR For Non-African Americans > 60 (> 60)
[2018-12-12 13:03] LABS: Platelet Estimate Normal (Normal); Reactive Lymphocytes Present (Not Present)
--- NOTE | 2018-12-12 13:31 | Emergency Department Note ---
Disposition Clinical Impression: Low hemoglobin GI bleed Qualifiers: GI bleed type/associated pathology: unspecified gastrointestinal hemorrhage type Qualified Code(s): K92.2 - Gastrointestinal hemorrhage, unspecified UTI (urinary tract infection) Qualifiers: Urinary tract infection type: acute cystitis Hematuria presence: without hematuria Qualified Code(s): N30.00 - Acute cystitis without hematuria Disposition: Admitted As Inpatient Condition: Good Time of Disposition: 14:31 General Adult HPI - General Chief complaint: ED Weakness Stated complaint: weakness, fatigue Time Seen by Provider: 12/12/18 13:15 Source: patient Mode of arrival: ambulatory Limitations: no limitations Nursing Notes Reviewed: Yes Vital Signs Reviewed: Yes - History of Present Illness HPI Narrative: The history, physical exam, and medical decision making was performed by the medical student either while I was physically present and actively involved or I personally re-performed the exam and medical decision making. I have verified the accuracy of the medical student's documentation with regards to the history, physical exam findings, and medical decision making. Pain Scale: 6 - Related Data Home Medications Medication Instructions Recorded Confirmed Aspirin [[place] Aspirin EC] 81 mg PO DAILY 11/28/18 12/12/18 Lisinopril [Zestril] 10 mg PO DAILY 11/28/18 12/12/18 Levothyroxine [Synthroid] 50 mcg PO DAILY 12/12/18 12/12/18 Ondansetron ODT [Zofran ODT] 4 mg SL ONCE 12/12/18 12/12/18 Previous Rx's Medication Instructions Recorded Omeprazole [PriLOSEC] 40 mg PO DAILY #30 cap 12/02/18 Allergies Allergy/AdvReac Type Severity Reaction Status Date / Time No Known Allergies Allergy Verified 11/28/18 15:03 All systems ED: reviewed and negative except as stated. Review of Systems: As Per HPI Constitutional: Denies: fever, chills ENT ED: Denies: congestion Cardiovascular: Denies: chest pain, palpitations Respiratory: Denies: cough, dyspnea, wheezes Gastrointestinal: Denies: abdominal pain, nausea, vomiting Genitourinary: Denies: urgency Musculoskeletal: Denies: back pain Integumentary: Denies: rash, abrasion Neurological: Reports: weakness. Denies: headache, numbness, paresthesias, confusion, abnormal gait Psychiatric: Denies: anxiety Endocrine: Reports: fatigue Hematological/Lymphatic: Denies: easy bleeding, easy bruising Past Medical History - Past Medical History Medical history: Reports: GERD, hypertension, thyroid disease Surgical history: Reports: hysterectomy Psychiatric history: Reports: no psych history - Social History Smoking Status: Former smoker Smokeless Tobacco Status: No Alcohol use: Reports: occasionally Drug use: Reports: none Physical Exam General: Conversant. No apparent distress. Follow commands. Appears stated age. Neck: No JVD. Trachea midline. Neck supple. Eyes: PERRL. No scleral icterus. HENT: Normocephalic and atraumatic. Moist mucus membranes. Cardiovascular: Regular rate and rhythm. Normal S1 and S2. No murmurs appreciated. Normal capillary refill. Extremities well perfused with 2+ distal pulses bilaterally. No edema. Pulmonary: Normal and equal breath sounds bilaterally, anteriorly and posteriorly. No wheezes, rales, or rhonchi. Not in respiratory distress. Speaks in full sentences. Abdomen: Soft, nondistended, without tenderness. No bruits or masses. No guarding or rebound. Neuro: Alert and oriented x3. No slurred speech. No focal deficits noted. Skin: No rashes noted on visualized skin. Overall pallor Musculoskeletal: No bony abnormalities visualized. Moves all extremities. Psych: Normal mood. Pleasant. Makes appropriate eye contact. . Course Vital Signs Temperature 97.7 F 12/12/18 11:42 Pulse Rate 93 12/12/18 11:42 Respiratory Rate 15 12/12/18 11:42 Blood Pressure 145/78 12/12/18 11:42 O2 Sat by Pulse Oximetry 98 12/12/18 11:42 Temperature 98.2 F 12/12/18 16:56 Pulse Rate 72 12/12/18 16:56 Respiratory Rate 16 12/12/18 16:56 Blood Pressure 167/65 12/12/18 16:56 O2 Sat by Pulse Oximetry 100 12/12/18 16:56 Oxygen Delivery Oxygen Delivery Room Air Medical Decision Making - [facility] Narrative Medical decision making narrative: Patient is an 88-year-old female presenting with weakness. Patient presents in no acute distress, does have overall sense of pallor, per family and the redness is not her baseline color. He she is in no acute distress, appears nontoxic, no altered mentation, GCS of 15. Vital signs otherwise within normal limits. She is not hypotensive. Patient was seen in the hospital a few weeks ago for similar symptoms, at that point in time she had EGD and colonoscopy performed which showed polyps without source of bleed. She did require 2 units of PRBCs during this admission. Patient was discharged and has been doing well. Past fe w days she has had generalized fatigue malaise and weakness. She has not noticed bright red blood per rectum. No melena. Laboratory work shows a hemoglobin of 6.6, stool occult is negative, no melena or bright red blood on examination. No hemorrhoids. Further laboratory work is relatively unrem arkable. EKG is sinus rhythm with ventricular rate of 86, regular rhythm, normal axis, multiple PVCs noted without ST segment elevation, depression. Type and screen was performed, 1 unit of PRBCs was ordered. This secondary to patient's low hemoglobin below 7. No active signs of hypotension or tachycardia at this time, patient is otherwise stable. Patient was also found to have a urinary tract infection, she was started on Rocephin. Patient will be admitted at this point in time for concern for GI bleed, no recent ibuprofen use, no history of peptic ulcers, she was given Protonix here in the ED. Otherwise is remained stable. Patient will be admitted her for further GI evaluation of low hemoglobin. - Medical Records Medical records reviewed: Yes I reviewed the patient's medical records. - Lab Data Lab results reviewed: Yes I reviewed the patient's lab results. Result diagrams: 12/12/18 12:06 12/12/18 12:06 Lab Results 12/12/18 12/12/18 12/12/18 Range/Units 12:06 12:06 13:40 WBC 7.6 (4.3-11.1) K/mcL RBC 2.42 L (3.82-4.97) M/mcL Hgb 6.6 L (11.5-15.4) g/dL Hct 21.2 L (35.3-44.9) % MCV 87.6 (83.0-100.0) fL MCH 27.3 L (28.0-33.3) pg MCHC 31.1 L (31.6-35.5) g/dL RDW 15.9 H (11.5-14.5) % Plt Count 256 (140-400) K/mcL MPV 10.6 (9.4-12.4) fL Immature Gran % 0.4 (0-4) % Seg Neutrophils % 67.9 % Lymphocytes % 24.6 % Monocytes % 5.8 % Eosinophils % 0.8 % Basophils % 0.5 % Neutrophils # 5.2 (1.6-8.9) K/mcL Lymphocytes # 1.9 (0.6-4.6) K/mcL Monocytes # 0.4 (0.0-1.3) K/mcL Eosinophils # 0.1 (0.0-0.6) K/mcL Basophils # 0.0 (0.0-0.2) K/mcL Reactive Lymphocytes Present A (Not Present) Platelet Estimate Normal (Normal) Sodium 137 (136-145) mEq/L Potassium 4.2 (3.5-5.1) mEq/L Chloride 102 (98-107) mEq/L Carbon Dioxide 25 (23-29) mEq/L BUN 19 (8-23) mg/dL Creatinine 0.80 (0.60-1.20) mg/dL Est GFR ( Amer) > 60 (> 60) Est GFR (Non-Af Amer) > 60 (> 60) BUN/Creatinine Ratio 24 (6-26) Glucose 130 H (70-105) mg/dL Calculated Osmolality 288 (280-300) Calcium 9.0 (8.6-10.3) mg/dL Total Bilirubin 0.3 (0.3-1.0) mg/dL AST 11 L (13-39) Units/L ALT 9 (7-52) Units/L Alkaline Phosphatase 82 (34-104) Units/L Troponin I < 0.03 (< 0.04) ng/mL Serum Total Protein 6.2 L (6.4-8.9) g/dL Albumin 3.8 (3.5-5.7) g/dL Globulin 2.4 (2.4-3.5) g/dL Albumin/Globulin Ratio 1.6 (1.1-2.2) Urine Color (Yellow) Urine Clarity (Clear) Urine pH (5.0-8.0) pH Units Ur Specific [place] (1.010-1.025) Urine Protein (Neg-Trace) mg/dL Urine Glucose (UA) (Normal) mg/dL Urine Ketones (Negative) mg/dL Urine Blood (Negative) Urine Nitrite (Negative) Urine Bilirubin (Negative) Urine Urobilinogen (Normal) mg/dL Ur Leukocyte Esterase (Negative) Urine Microscopic RBC (0-3) per hpf Urine Microscopic WBC (0-3) per hpf Ur Squamous Epith Cells (None-Few) per lpf Urine Bacteria (None-Few) per hpf Hyaline Casts (None-Few) per lpf Ur Culture Indicated? (NO) Stool Occult Bld Scrn (Negative) Blood Type O NEGATIVE Antibody Screen NEGATIVE Crossmatch See Detail 12/12/18 12/12/18 Range/Units 14:00 14:10 WBC (4.3-11.1) K/mcL RBC (3.82-4.97) M/mcL Hgb (11.5-15.4) g/dL Hct (35.3-44.9) % MCV (83.0-100.0) fL MCH (28.0-33.3) pg MCHC (31.6-35.5) g/dL RDW (11.5-14.5) % Plt Count (140-400) K/mcL MPV (9.4-12.4) fL Immature Gran % (0-4) % Seg Neutrophils % % Lymphocytes % % Monocytes % % Eosinophils % % Basophils % % Neutrophils # (1.6-8.9) K/mcL Lymphocytes # (0.6-4.6) K/mcL Monocytes # (0.0-1.3) K/mcL Eosinophils # (0.0-0.6) K/mcL Basophils # (0.0-0.2) K/mcL Reactive Lymphocytes (Not Present) Platelet Estimate (Normal) Sodium (136-145) mEq/L Potassium (3.5-5.1) mEq/L Chloride (98-107) mEq/L Carbon Dioxide (23-29) mEq/L BUN (8-23) mg/dL Creatinine (0.60-1.20) mg/dL Est GFR ( Amer) (> 60) Est GFR (Non-Af Amer) (> 60) BUN/Creatinine Ratio (6-26) Glucose (70-105) mg/dL Calculated Osmolality (280-300) Calcium (8.6-10.3) mg/dL Total Bilirubin (0.3-1.0) mg/dL AST (13-39) Units/L ALT (7-52) Units/L Alkaline Phosphatase (34-104) Units/L Troponin I (< 0.04) ng/mL Serum Total Protein (6.4-8.9) g/dL Albumin (3.5-5.7) g/dL Globulin (2.4-3.5) g/dL Albumin/Globulin Ratio (1.1-2.2) Urine Color Yellow (Yellow) Urine Clarity Clear (Clear) Urine pH 6.0 (5.0-8.0) pH Units Ur Specific [place] 1.013 (1.010-1.025) Urine Protein Negative (Neg-Trace) mg/dL Urine Glucose (UA) Normal (Normal) mg/dL Urine Ketones Negative (Negative) mg/dL Urine Blood Negative (Negative) Urine Nitrite Positive A (Negative) Urine Bilirubin Negative (Negative) Urine Urobilinogen Normal (Normal) mg/dL Ur Leukocyte Esterase Small H (Negative) Urine Microscopic RBC 0-3 (0-3) per hpf Urine Microscopic WBC 5-15 H (0-3) per hpf Ur Squamous Epith Cells Many H (None-Few) per lpf Urine Bacteria Many H (None-Few) per hpf Hyaline Casts None Seen (None-Few) per lpf Ur Culture Indicated? YES A (NO) Stool Occult Bld Scrn Negative (Negative) Blood Type Antibody Screen Crossmatch - EKG Data EKG #1 EKG attestation: Yes I reviewed and interpreted this EKG.
--- NOTE | 2018-12-12 13:37 | Emergency Department Note ---
Disposition Clinical Impression: Low hemoglobin, UTI (urinary tract infection) GI bleed Qualifiers: GI bleed type/associated pathology: unspecified gastrointestinal hemorrhage type Qualified Code(s): K92.2 - Gastrointestinal hemorrhage, unspecified Disposition: Admitted As Inpatient Condition: Good Referrals: NONE,PCP [Primary Care Provider] - Time of Disposition: 16:58 General Adult HPI - General Chief complaint: ED Weakness Stated complaint: weakness, fatigue Time Seen by Provider: 12/12/18 13:15 Source: patient, family Mode of arrival: private vehicle Limitations: no limitations Nursing Notes Reviewed: Yes Vital Signs Reviewed: Yes - History of Present Illness HPI Narrative: Patient is an 88 year old female with past medical history of HTN, GERD and anemia who presents today for weakness that has been ongoing since her discharge from here 10 days ago. At that time, she was admitted for anemia requiring 2 units of PRBCs, endoscopy and colonoscopy. Mild esophogitis and two polyps with no active bleeding which were found to be benign. She admits to generalized weakness, mild shortness of breath, nausea and decreased appetite. She denies chest pain, fever, chills, abdominal pain, diarrhea, constipation, melena, hematochezia, vomiting, hematemesis, dysuria, increased urinary frequency, hematuria. She denies history of bleeding or clotting disorders. Pain Scale: 6 - Related Data Home Medications Medication Instructions Recorded Confirmed Aspirin [[place] Aspirin EC] 81 mg PO DAILY 11/28/18 12/12/18 Lisinopril [Zestril] 10 mg PO DAILY 11/28/18 12/12/18 Levothyroxine [Synthroid] 50 mcg PO DAILY 12/12/18 12/12/18 Ondansetron ODT [Zofran ODT] 4 mg SL ONCE 12/12/18 12/12/18 Previous Rx's Medication Instructions Recorded Omeprazole [PriLOSEC] 40 mg PO DAILY #30 cap 12/02/18 Allergies Allergy/AdvReac Type Severity Reaction Status Date / Time No Known Allergies Allergy Verified 11/28/18 15:03 All systems ED: reviewed and negative except as stated. Review of Systems: As Per HPI Constitutional: Reports: weakness. Denies: fever, chills Cardiovascular: Denies: chest pain, palpitations, dyspnea on exertion, edema Respiratory: Reports: dyspnea. Denies: cough, wheezes, hemoptysis Gastrointestinal: Reports: nausea. Denies: abdominal pain, vomiting, diarrhea, constipation, hematemesis, melena, hematochezia Genitourinary: Denies: urgency, dysuria, frequency Musculoskeletal: Denies: back pain, neck pain Integumentary: Denies: rash Neurological: Reports: weakness. Denies: headache, numbness, confusion Psychiatric: Denies: anxiety, depression Endocrine: Reports: fatigue Past Medical History - Past Medical History Attestation: Yes The following information was validated with the patient. Source: patient Medical history: Reports: GERD, hypertension, thyroid disease Surgical history: Reports: cholecystectomy, hysterectomy Psychiatric history: Reports: no psych history - Social History Smoking Status: Former smoker Smokeless Tobacco Status: No Alcohol use: Reports: occasionally Drug use: Reports: none Physical Exam - General Limitations: no limitations General appearance: alert, in no apparent distress - Head Head exam: atraumatic, normocephalic - Eye Eye exam: Present: normal appearance, PERRL, EOMI - ENT ENT exam: normal exam, normal oropharynx, mucous membranes moist - Neck Neck exam: Present: normal inspection - Chest Chest inspection: Present: normal inspection, symmetric chest wall rise - Respiratory Respiratory exam: Present: normal lung sounds bilaterally, respiratory distress. Absent: wheezes, accessory muscle use - Cardiovascular Cardiovascular exam: Present: regular rate, normal rhythm, normal heart sounds - Abdominal Exam Abdominal exam: Present: soft, tenderness, normal bowel sounds. Absent: d istention, guarding, rebound, rigidity Abdominal tenderness: Present: RUQ - Extremities Exam Extremities exam: Present: normal inspection, full ROM. Absent: tenderness, pedal edema - Back Exam Back exam: Present: normal inspection, full ROM. Absent: tenderness - Neurological Exam Neurological exam: Present: alert, oriented X3 - Psychiatric Psychiatric exam: Present: normal affect, normal mood - Skin Skin exam: Present: warm, dry, intact. Absent: rash Course Vital Signs Temperature 97.7 F 12/12/18 11:42 Pulse Rate 93 12/12/18 11:42 Respiratory Rate 15 12/12/18 11:42 Blood Pressure 145/78 12/12/18 11:42 O2 Sat by Pulse Oximetry 98 12/12/18 11:42 Temperature 98.2 F 12/12/18 16:56 Pulse Rate 72 12/12/18 16:56 Respiratory Rate 16 12/12/18 16:56 Blood Pressure 167/65 12/12/18 16:56 O2 Sat by Pulse Oximetry 100 12/12/18 16:56 Oxygen Delivery Oxygen Delivery Room Air Medical Decision Making - [facility] Narrative Medical decision making narrative: 88 year old hemodynamically stable female who presents for weakness of 10 days. She was found to have a hemoglobin of 6.7 approximately 2 weeks ago when she was transfused 2 units of PRBCs with improvement of her hbg to 9.9. She had an upper endoscopy and colonscopy at that time. These demonstrated mild esophogitis, 2 benign polyps, no active bleeding. We will get a CBC, BMP, UA type and screen and stool occult. CBC demonstrated a normocytic anemia with a hb g of 6.6 and a normal wbc. BMP within normal limits. UA demonstrated positive nitrites and positive urine bacteria. Stool occult is negative. She does not have any bright red blood per rectum or melana, hematemasis, hematuria. We will start her on a protonix drip, give her one unit of PRBCs in the department due to the suspicion of a GI bleed, and start Rocephin for UTI and SBP prevention. - Medical Records Medical records reviewed: Yes I reviewed the patient's medical records. - Lab Data Lab results reviewed: Yes I reviewed the patient's lab results. Result diagrams: 12/12/18 12:06 12/12/18 12:06 Lab Results 12/12/18 12/12/18 12/12/18 Range/Units 12:06 12:06 13:40 WBC 7.6 (4.3-11.1) K/mcL RBC 2.42 L (3.82-4.97) M/mcL Hgb 6.6 L (11.5-15.4) g/dL Hct 21.2 L (35.3-44.9) % MCV 87.6 (83.0-100.0) fL MCH 27.3 L (28.0-33.3) pg MCHC 31.1 L (31.6-35.5) g/dL RDW 15.9 H (11.5-14.5) % Plt Count 256 (140-400) K/mcL MPV 10.6 (9.4-12.4) fL Immature Gran % 0.4 (0-4) % Seg Neutrophils % 67.9 % Lymphocytes % 24.6 % Monocytes % 5.8 % Eosinophils % 0.8 % Basophils % 0.5 % Neutrophils # 5.2 (1.6-8.9) K/mcL Lymphocytes # 1.9 (0.6-4.6) K/mcL Monocytes # 0.4 (0.0-1.3) K/mcL Eosinophils # 0.1 (0.0-0.6) K/mcL Basophils # 0.0 (0.0-0.2) K/mcL Reactive Lymphocytes Present A (Not Present) Platelet Estimate Normal (Normal) Sodium 137 (136-145) mEq/L Potassium 4.2 (3.5-5.1) mEq/L Chloride 102 (98-107) mEq/L Carbon Dioxide 25 (23-29) mEq/L BUN 19 (8-23) mg/dL Creatinine 0.80 (0.60-1.20) mg/dL Est GFR ( Amer) > 60 (> 60) Est GFR (Non-Af Amer) > 60 (> 60) BUN/Creatinine Ratio 24 (6-26) Glucose 130 H (70-105) mg/dL Calculated Osmolality 288 (280-300) Calcium 9.0 (8.6-10.3) mg/dL Total Bilirubin 0.3 (0.3-1.0) mg/dL AST 11 L (13-39) Units/L ALT 9 (7-52) Units/L Alkaline Phosphatase 82 (34-104) Units/L Troponin I < 0.03 (< 0.04) ng/mL Serum Total Protein 6.2 L (6.4-8.9) g/dL Albumin 3.8 (3.5-5.7) g/dL Globulin 2.4 (2.4-3.5) g/dL Albumin/Globulin Ratio 1.6 (1.1-2.2) Urine Color (Yellow) Urine Clarity (Clear) Urine pH (5.0-8.0) pH Units Ur Specific [place] (1.010-1.025) Urine Protein (Neg-Trace) mg/dL Urine Glucose (UA) (Normal) mg/dL Urine Ketones (Negative) mg/dL Urine Blood (Negative) Urine Nitrite (Negative) Urine Bilirubin (Negative) Urine Urobilinogen (Normal) mg/dL Ur Leukocyte Esterase (Negative) Urine Microscopic RBC (0-3) per hpf Urine Microscopic WBC (0-3) per hpf Ur Squamous Epith Cells (None-Few) per lpf Urine Bacteria (None-Few) per hpf Hyaline Casts (None-Few) per lpf Ur Culture Indicated? (NO) Stool Occult Bld Scrn (Negative) Blood Type O NEGATIVE Antibody Screen NEGATIVE Crossmatch See Detail 12/12/18 12/12/18 Range/Units 14:00 14:10 WBC (4.3-11.1) K/mcL RBC (3.82-4.97) M/mcL Hgb (11.5-15.4) g/dL Hct (35.3-44.9) % MCV (83.0-100.0) fL MCH (28.0-33.3) pg MCHC (31.6-35.5) g/dL RDW (11.5-14.5) % Plt Count (140-400) K/mcL MPV (9.4-12.4) fL Immature Gran % (0-4) % Seg Neutrophils % % Lymphocytes % % Monocytes % % Eosinophils % % Basophils % % Neutrophils # (1.6-8.9) K/mcL Lymphocytes # (0.6-4.6) K/mcL Monocytes # (0.0-1.3) K/mcL Eosinophils # (0.0-0.6) K/mcL Basophils # (0.0-0.2) K/mcL Reactive Lymphocytes (Not Present) Platelet Estimate (Normal) Sodium (136-145) mEq/L Potassium (3.5-5.1) mEq/L Chloride (98-107) mEq/L Carbon Dioxide (23-29) mEq/L BUN (8-23) mg/dL Creatinine (0.60-1.20) mg/dL Est GFR ( Amer) (> 60) Est GFR (Non-Af Amer) (> 60) BUN/Creatinine Ratio (6-26) Glucose (70-105) mg/dL Calculated Osmolality (280-300) Calcium (8.6-10.3) mg/dL Total Bilirubin (0.3-1.0) mg/dL AST (13-39) Units/L ALT (7-52) Units/L Alkaline Phosphatase (34-104) Units/L Troponin I (< 0.04) ng/mL Serum Total Protein (6.4-8.9) g/dL Albumin (3.5-5.7) g/dL Globulin (2.4-3.5) g/dL Albumin/Globulin Ratio (1.1-2.2) Urine Color Yellow (Yellow) Urine Clarity Clear (Clear) Urine pH 6.0 (5.0-8.0) pH Units Ur Specific [place] 1.013 (1.010-1.025) Urine Protein Negative (Neg-Trace) mg/dL Urine Glucose (UA) Normal (Normal) mg/dL Urine Ketones Negative (Negative) mg/dL Urine Blood Negative (Negative) Urine Nitrite Positive A (Negative) Urine Bilirubin Negative (Negative) Urine Urobilinogen Normal (Normal) mg/dL Ur Leukocyte Esterase Small H (Negative) Urine Microscopic RBC 0-3 (0-3) per hpf Urine Microscopic WBC 5-15 H (0-3) per hpf Ur Squamous Epith Cells Many H (None-Few) per lpf Urine Bacteria Many H (None-Few) per hpf Hyaline Casts None Seen (None-Few) per lpf Ur Culture Indicated? YES A (NO) Stool Occult Bld Scrn Negative (Negative) Blood Type Antibody Screen Crossmatch
[2018-12-12 14:10] LABS: Bilirubin,Urine Negative (Negative); Blood,Urine Negative (Negative); Clarity,Urine Clear (Clear); Color,Urine Yellow (Yellow); Glucose,Urine (UA) Normal (Normal); Ketones,Urine Negative (Negative); Leukocyte Esterase,Urine Small (Negative); Nitrite,Urine Positive (Negative); Protein,Urine Negative (Neg-Trace); Specific Gravity,Urine 1.013 (1.010-1.025); Urobilinogen,Urine Normal (Normal)
[2018-12-12 14:11] LABS: Bacteria,Urine Many per hpf (None-Few); Hyaline Casts,Urine None Seen per lpf (None-Few); RBC,Urine 0-3 per hpf (0-3); Squamous Epithelial Cell,Urine Many per lpf (None-Few)
[2018-12-12] MEDS ORDERED: cefTRIAXone 1,000 MG in Water for inj. (sterile) 10 ML IVP ONE (14:26)
[2018-12-12] MEDS ORDERED: Pantoprazole 40 MG VIAL IVP ONE ×2 (14:27→14:36)
[2018-12-12] MEDS ORDERED: Acetaminophen 325 MG TABLET PO PRN (17:45)
[2018-12-12] MEDS ORDERED: Ondansetron 4 MG/2 ML VIAL IVP PRN (17:45)
--- NOTE | 2018-12-12 17:48 | Internal Med History&Physical ---
Date of Encounter: 12/12/18 Time of Encounter: 17:17 Internal Medicine - H&P: HPI Chief complaint: Fatigue Admitted From: Emergency Dept History of present illness: Michelle Monroy is a 88 F w hx HTN, hypothyroidism, GERD and reflux esophagitis, ?h x Crohn's, who presents for fatigue/generalized weakness. Patient states these symptoms have been present for a while, improved temporarily during recent admission, but have continued to worsen since. She says each day she just feels a little weaker. Denies any bleeding or bruising with the exception of a small R pinky bruise on inside of PIP. She actually states that the reason she returned was because she was concerned that if her peripheral blood vessels were breaking, that one might break in her head. No hematemesis or hematochezia or melena. Of note, pt underwent cholecystectomy in mid October, and at PCP follow up in early November had labs revealing hemoglobin 6.7 and thus was sent by PCP to ED on 11/29. At that time, stool for occult blood was positive. Patient received 2 unit PRBC, repeat hemoglobin 9.7. GI was consulted, EGD and colonoscopy were performed on 11/30. EGD showed mild reflux esophagitis. Colonoscopy revealed several polyps which was biopsied. No active bleeding site was identified on both studies. She was placed on PPI. Labs test showed low serum iron level, iron supplement started. Patient was kept in the hospital, serial H/H was stable at 9.6 for 3 days. She reported absence of black tarry stool, blood in the stool, or hematemsis. Patient was discharged home with prescription for iron supplement and Prilosec, and with close PCP follow up for repeat H&H. She has not yet had follow up with her PCP. In the ED, pt vitals T97.7, HR 70-90, RR 15-18, SBP 130-150s, satting 96+% on RA. Labs notable for Hb 6.6. UA dirty w nitrites but small LE and WBCs. Given dose rocephin, type&crossed, and given 1u prbc prior to admission. Past medical, surgical, social, and family histories reviewed and updated as below. Past Med Surg Social Fam HX - Past Medical History Medical history: GERD, hypertension, thyroid disease Additional medical history: Crohns Psychiatric history: no psych history - Past Surgical History Surgical History: cholecystectomy, hysterectomy - Social History Smoking Status: Former smoker Smokeless Tobacco Status: No Alcohol use: occasionally Drug use: none - Family History Mother Living Status: Cause of : gangrene in the stomach Father Living Status: Internal Medicine - H&P: Meds Aspirin [[place] Aspirin EC] 81 mg PO DAILY 11/28/18 [History] Lisinopril [Zestril] 10 mg PO DAILY 11/28/18 [History] Omeprazole [PriLOSEC] 40 mg PO DAILY #30 cap 12/02/18 [Rx] Levothyroxine [Synthroid] 50 mcg PO DAILY 12/12/18 [History] Ondansetron ODT [Zofran ODT] 4 mg SL ONCE 12/12/18 [History] Allergy/AdvReac Type Severity Reaction Status Date / Time No Known Allergies Allergy Verified 11/28/18 15:03 All Systems PM: A 10-system review of systems was performed and is negative for pertinent findings except as documented above in the HPI. - Constitutional Vitals: Temp Pulse Resp BP Pulse Ox 98.2 F 72 16 167/65 100 12/12/18 16:56 12/12/18 16:56 12/12/18 16:56 12/12/18 16:56 12/12/18 16:56 Exam: General: NAD, AAOx3, good eye contact, relatively well appearing, elderly and adorable Head: Atraumatic, normocephalic. Face symmetric Eyes: EOMI, sclerae anicteric ENT: Mucous membranes moist. Normal oral mucosa and dentition. Trachea midline. Thoracic: No visible chest wall deformities. Normal breath sounds b/l, no wheezing or crackles Cardio: Normal S1 and S2, regular rate and rhythm Abdomen: Soft, nontender, nondistended. Extremities: Warm, well perfused. DP pulses 2+ b/l. No clubbing, cyanosis. No edema Skin: Intact. No rashes, bruises, or ulcers Neuro: Awake, fully oriented. Good memory, concentration, attention. Speech flue nt. CN II-XII grossly intact. Strength 5/5 in b/l UE and LE Internal Med - H&P Results - Labs CBC & Chem 7: 12/12/18 12:06 12/12/18 12:06 Labs: Short CBC 12/12/18 Range/Units 12:06 WBC 7.6 (4.3-11.1) K/mcL Hgb 6.6 L (11.5-15.4) g/dL Hct 21.2 L (35.3-44.9) % Plt Count 256 (140-400) K/mcL Neutrophils # 5.2 (1.6-8.9) K/mcL BMP 12/12/18 12:06 Sodium 137 Potassium 4.2 Chloride 102 Carbon Dioxide 25 BUN 19 Creatinine 0.80 Glucose 130 H Calcium 9.0 Cardiac Enzymes 12/12/18 Range/Units 12:06 Troponin I < 0.03 (< 0.04) ng/mL Liver Function 12/12/18 Range/Units 12:06 Total Bilirubin 0.3 (0.3-1.0) mg/dL AST 11 L (13-39) Units/L ALT 9 (7-52) Units/L Alkaline Phosphatase 82 (34-104) Units/L Albumin 3.8 (3.5-5.7) g/dL Urine 12/12/18 Range/Units 14:00 Urine Color Yellow (Yellow) Urine Clarity Clear (Clear) Urine pH 6.0 (5.0-8.0) pH Units Ur Specific [place] 1.013 (1.010-1.025) Urine Protein Negative (Neg-Trace) mg/dL Urine Glucose (UA) Normal (Normal) mg/dL - Summary of Assessment and Plan Summary of Assessment and Plan: Michelle Monroy is a 88 F w hx HTN, hypothyroidism, GERD and reflux esophagitis, ?hx Crohn's, who p/w fatigue, Hb 6.6, concerning for symptomatic anemia. Acute on chronic normocytic anemia: likely 2/2 GI losses, known hx GERD and esophagitis, not acutely bleeding at this time and vitals stable - maintain T&C - transfuse 1u prbc - recheck Hb in AM - check esr/crp - stop ASA 81 as no hx CAD/CVA - GI consult Fatigue/weakness: likely 2/2 anemia above - transfusion as above - PT/OT consults GERD: continue home omeprazole 40 Asymptomatic bacteriuria: given dose of rocephin in ED, will not continue Hypothyroidism: home synthroid HTN: home lisinopril 10 PPx: SCDs Tele: no Activity: up ad brady FEN: regular, no MIVF Lines: PIV Consults: GI Code: DNRCC-A DNI Dispo: obs for symptomatic anemia, anticipate 1-2 days, will be homegoing
[2018-12-12 19:00] LABS: C-Reactive Protein < 5 mg/L (Less than 10)
[2018-12-13 05:47] LABS: Hemoglobin 7.1 g/dL (11.5-15.4); Mean Corpuscular HGB Conc 32.3 g/dL (31.6-35.5); Mean Corpuscular Hemoglobin 28.4 pg (28.0-33.3); Mean Platelet Volume 10.7 fL (9.4-12.4); Platelet Count 206 K/mcL (140-400); Red Cell Distribution Width 15.1 % (11.5-14.5); White Blood Count 5.7 K/mcL (4.3-11.1)
--- NOTE | 2018-12-13 06:07 | Electrocardiograph Report ---
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
[2018-12-13 06:17] LABS: BUN/Creatinine Ratio 22 (6-26); Blood Urea Nitrogen 20 mg/dL (8-23); Calcium 8.5 mg/dL (8.6-10.3); Carbon Dioxide 26 mEq/L (23-29); Chloride 103 mEq/L (98-107); Glucose 106 mg/dL (70-105); Magnesium 2.1 mg/dL (1.6-2.6); Osmolality,Calculated 291 (280-300); Potassium 4.2 mEq/L (3.5-5.1); Sodium 139 mEq/L (136-145); eGFR For African Americans > 60 (> 60); eGFR For Non-African Americans 57 (> 60)
--- NOTE | 2018-12-13 08:30 | Gastroenterology Consult Note ---
<Erika Del Real - Last Filed: 12/13/18 11:56> Date of Encounter: 12/13/18 Time of Encounter: 08:29 - Assessment and plan (1) Anemia Current Visit: No Status: Acute Assessment and plan: Presented to the ED complaining of diffuse weakness and fatigue Hemoglobin presentation noted to be 6.6 Was recently admitted due anemia with stool occult positive She underwent EGD and colonoscopy on 11/30/18 showed tubular adenomas an EGD showed reflux esophagitis Additionally during her last stay her serum iron and percent saturation was significantly low She is not on any iron supplementation at home During this admission stay her stool is negative for blood Received one unit of blood transfusion this morning hemoglobin noted to be 7.1 Recommend trending H&H and transfuse him with packed red blood cell Given low iron during last day 1 week ago would benefit from IV iron Keep nothing by mouth plan for push enteroscopy later today 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 Recommend outpatient follow-up plan for capsule endoscopy outpatient Thank you for involving GI in this patient's care, further recommendations by Dr. Mcmillan. Qualifiers: Anemia type: iron deficiency Qualified Code(s): D50.9 - Iron deficiency anemia, unspecified - Time Spent With Patient Total time spent is greater than 50% in coordination of care (as documented) at patient's floor/unit and/or counseling patient: GI History of Present Illness - Data of Consult Requesting Physician: Doug Batres - Consult Narrative History of present illness: Ms. Monroy is a 88 year old female with past medical history of hypertension, hyperthyroidism, GERD possible Crohn's presented to the ED complaining of generalized weakness as well as fatigue. Patient reported the symptoms have been ongoing for a long time and temporarily improved during her recent stay on 11/29/18 and was discharged on 12/02/18. Her hemoglobin at admission on 11/28/18 was 6.7 received 2 units of blood transfusion during that stay. She is denying any bleeding or bruising but did not complain of bruising on her right pinky. Patient returned to the ED this time because she was concerned about her blood vessels breaking down. Denying any emesis, hematochezia, melena, hematemesis. She underwent cholecystectomy in mid October. During her last admission her stool was positive for blood she underwent EGD and colonoscopy on 11/30/18 EGD showed mild reflux esophagitis and colonoscopy showed several polyps which were biopsied pathology showed tubular adenomas. During her last admission stay her serum iron was low measured at 22 and percent saturation was low as well measured at 6. During this hospital stay admission her systolic blood pressure was 130s to 150s, respiratory rate was 16-18. It was 70-90 and temperature was 97.7. Her hemoglobin was noted to be 6.6 received one unit of packed red blood cell in the ED and this morning hemoglobin noted to be 7.1. Other than ongoing fatigue she is denying fever, chills, shortness of breath, chest pain, abdominal pain, hematochezia or melena. Past Med Surg Social Fam HX - Past Medical History Medical history: GERD, hypertension, thyroid disease Additional medical history: Crohns Psychiatric history: no psych history - Past Surgical History Surgical History: cholecystectomy, hysterectomy - Social History Smoking Status: Former smoker Smokeless Tobacco Status: No Alcohol use: occasionally Drug use: none - Family History Mother Living Status: Cause of : gangrene in the stomach Father Living Status: - Gastrointestinal Gastrointestinal: Present: nausea, other (Loss of appetite). Absent: abdominal pain, diarrhea - Constitutional Constitutional: no fatigue, no weight loss - EENT Nose, mouth and throat: Absent: dysphagia, hoarseness, sore throat - Cardiovascular Cardiovascular ROS: Absent: chest pain, palpitations - Respiratory Respiratory IM: Absent: cough, dyspnea, hemoptysis - Genitourinary Genitourinary: Absent: Urinary frequency - Neurological ROS Neurological GI: Present: weakness (Diffuse). Absent: confusion, frequent falls - Hematologic/Lymphatic Hematologic/Lymphatic pediatric: Absent: easy bleeding - Musculoskeletal Musculoskeletal ROS GI: Present: back pain (Reports chronic back pain) - Constitutional Vitals: Temp Pulse Resp BP Pulse Ox 97.7 F 67 15 115/58 97 12/13/18 07:24 12/13/18 07:24 12/13/18 07:24 12/13/18 07:24 12/13/18 07:24 General appearance: Present: A&O X 3, pleasant - Head Head exam: Present: atraumatic, normal inspection - Eye Eye exam: Present: EOMI, sclera anicteric. Absent: conjunctival injection - ENT ENT exam: Present: mucous membranes moist, normal oropharynx - Neck Neck exam general surgery: Present: full ROM, trachea midline - Respiratory Respiratory exam: Present: CTAB. Absent: rhonchi, wheezes - Cardiovascular Cardiovascular exam: Present: RRR, +S1, +S2 - GI/Abdominal GI/Abdominal exam: Present: normal bowel sounds, soft. Absent: firm - Extremities Exam Extremities exam: Present: warm. Absent: pedal edema, tenderness - Psychiatric Psychiatric exam: Present: normal affect, normal mood - Skin Skin exam: Present: dry, intact Results - Labs CBC & Chem 7: 12/13/18 04:00 12/13/18 04:00 Labs: Last Result 12/13/18 04:00 Calcium 8.5 L Entire Visit 12/13/18 04:00 Hgb 7.1 L Hct 22.0 L Consult Discharge Plan - Plan Referrals: Nilson Joseph MD [Non-Partnered Physician] - <Calista Mcmillan - Last Filed: 12/13/18 16:26> Date of Encounter: 12/13/18 Time of Encounter: 08:30 - Time Spent With Patient Total time spent is greater than 50% in coordination of care (as documented) at patient's floor/unit and/or counseling patient: GI History of Present Illness - Data of Consult Requesting Physician: Doug Batres - Consult Narrative History of present illness: Ms. Monroy is a 88 year old female - Constitutional Vitals: Temp Pulse Resp BP Pulse Ox 98.0 F 82 16 136/87 100 12/13/18 16:22 12/13/18 16:22 12/13/18 16:22 12/13/18 16:22 12/13/18 16:22 Results - Labs CBC & Chem 7: 12/13/18 04:00 12/13/18 04:00 Labs: Last Result 12/13/18 04:00 Calcium 8.5 L Entire Visit 12/13/18 04:00 Hgb 7.1 L Hct 22.0 L - Attending Attestation I examined this patient and my medical decision-making was reviewed with the Res ident Physician. I agree with the documented findings, disposition and treatment plan as described except to the extent set forth below. Pt seen. No abd pain. o/E : abd soft. A: pt with recurrent anemia. Recent EGD/colon negative. Enteroscopy with bleeding AVMs s/p APC. Rec: Follow H/H. Cap endo out pt
--- NOTE | 2018-12-13 08:33 | Anesthesia Evaluation PreOp ---
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 Any Significant HX Other Medical History: Thyroid (hypo), GERD, Other (Crohn's) Anesthesia History: No Prior Anesthetic Complications, Past Anesthesia (alice( followed with double scope), DAVID) Alcohol Use: occasionally Drug use: none Medications and Allergies Aspirin [[place] Aspirin EC] 81 mg PO DAILY 11/28/18 [History] Lisinopril [Zestril] 10 mg PO DAILY 11/28/18 [History] Omeprazole [PriLOSEC] 40 mg PO DAILY #30 cap 12/02/18 [Rx] Levothyroxine [Synthroid] 50 mcg PO DAILY 12/12/18 [History] Ondansetron ODT [Zofran ODT] 4 mg SL ONCE 12/12/18 [History] Allergy/AdvReac Type Severity Reaction Status Date / Time No Known Allergies Allergy Verified 11/28/18 15:03 - Meds/Allergy Pre-op Review Medications Reviewed: Yes Allergies Reviewed: Yes Beta Blockers on Current Med List: No Anesthesia Results - Labs 12/13/18 04:00 12/13/18 04:00 Anesthesia Exam Selected Entries 12/13/18 07:24 Temperature 97.7 F Pulse Rate 67 Respiratory Rate 15 Blood Pressure 115/58 O2 Sat by Pulse Oximetry 97 Oxygen Delivery Method Room Air Weight: 72kg NPO (# of Hours): 8 - HEENT Pupil (Motor): EOMI Mallampati: II Teeth: Edentulous Oral Opening: Greater than 3 - BOX FINISHER LOC: Oriented BOX FINISHER Motor: Normal RUE, Normal LUE, Normal RLE, Normal LLE, Normal Face BOX FINISHER Sensory: Normal: RUE, LUE, RLE, LLE, Face - Cardiac Rhythm: Regular Murmur: None - Pulmonary Breath Sounds: bilateral Clear Respiratory Effort: Symmetrical Anesthesia Assess/Plan ASA Score: 3 Level of consciousness: Cooperative Anesthetic Plan: MAC Monitoring Plan: Standard Monitors Recovery Plan: Other (agrees to MAC)
[2018-12-13] MEDS ORDERED: Aspirin Enteric Coated 81 MG Tablet PO SCH (09:00)
[2018-12-13] MEDS ORDERED: Lidocaine -MPF 2% 2 ML VIAL ONE (09:03)
[2018-12-13] MEDS ORDERED: *HR* Propofol 200 MG/20 ML VIAL IVP ONE ×2 (09:03→09:27)
[2018-12-13] MEDS ORDERED: 0.9 % Sodium Chloride 250 ML ONE (09:39)
--- NOTE | 2018-12-13 14:11 | Internal Med Progress Note ---
Hospitalist Progress Note - Encounter Date of Encounter: 12/13/18 Time of Encounter: 14:08 - Subjective Interval History: Pt seen early this AM, still feels tired/weak, but otherwise feels OK. Denies CP, palpitations, cough, SOB, N/V/D. Appetite improving. Was hoping to feel more "perked up" after transfusion. Interested to see GI team. Amenable to another transfusion - Exam Vitals: Temp Pulse Resp BP Pulse Ox 97.3 F L 71 14 139/64 99 12/13/18 12:20 12/13/18 12:20 12/13/18 12:20 12/13/18 12:20 12/13/18 12:20 Exam: General: NAD, good eye contact, relatively well appearing, elderly Thoracic: Normal breath sounds b/l, no wheezing or crackles Cardio: Normal S1 and S2, regular rate and rhythm Abdomen: Soft, nontender Extremities: Warm, well perfused. DP pulses 2+ b/l. No edema Skin: Intact. No rashes, bruises, or ulcers Neuro: Awake, fully oriented. Good memory. Speech fluent. - Summary of Assessment and Plan Summary of Assessment and Plan: Michelle Monroy is a 88 F w hx HTN, hypothyroidism, GERD and reflux esophagitis, ?hx Crohn's, who p/w fatigue, Hb 6.6, concerning for symptomatic anemia. Acute on chronic normocytic anemia: likely 2/2 GI losses, known hx GERD and esophagitis, not acutely bleeding at this time and vitals stable. Hb 7.1 today is inappropriate increase in Hb. - transfuse additional 1u prbc today - stop ASA 81 as no hx CAD/CVA - GI consult, appreciate plan for push enteroscopy Fatigue/weakness: likely 2/2 anemia above - transfusion as above - PT/OT consults GERD: continue home omeprazole 40 Asymptomatic bacteriuria: given dose of rocephin in ED, will not continue Hypothyroidism: home synthroid HTN: home lisinopril 10 PPx: SCDs Tele: no Activity: up ad brady FEN: NPO then resume regular, no MIVF Lines: PIV Consults: GI Code: DNRCC-A DNI Dispo: obs for symptomatic anemia, anticipate d/c later today or tomorrow, will be homegoing Internal Medicine: Result - Labs CBC & Chem 7: 12/13/18 04:00 12/13/18 04:00 Labs: Short CBC 12/13/18 Range/Units 04:00 WBC 5.7 (4.3-11.1) K/mcL Hgb 7.1 L (11.5-15.4) g/dL Hct 22.0 L (35.3-44.9) % Plt Count 206 (140-400) K/mcL BMP 12/12/18 12/13/18 12:06 04:00 Sodium 137 139 Potassium 4.2 4.2 Chloride 102 103 Carbon Dioxide 25 26 BUN 19 20 Creatinine 0.80 0.93 Glucose 130 H 106 H Calcium 9.0 8.5 L Cardiac Enzymes 12/12/18 Range/Units 12:06 Troponin I < 0.03 (< 0.04) ng/mL Liver Function 12/12/18 Range/Units 12:06 Total Bilirubin 0.3 (0.3-1.0) mg/dL AST 11 L (13-39) Units/L ALT 9 (7-52) Units/L Alkaline Phosphatase 82 (34-104) Units/L Albumin 3.8 (3.5-5.7) g/dL Urine 12/12/18 Range/Units 14:00 Urine Color Yellow (Yellow) Urine Clarity Clear (Clear) Urine pH 6.0 (5.0-8.0) pH Units Ur Specific [place] 1.013 (1.010-1.025) Urine Protein Negative (Neg-Trace) mg/dL Urine Glucose (UA) Normal (Normal) mg/dL Consult Discharge Plan - Plan Referrals: Nilson Joseph MD [Non-Partnered Physician] -
[2018-12-13 16:21] LABS: Hematocrit 25.6 % (35.3-44.9); Hemoglobin 8.2 g/dL (11.5-15.4)
[2018-12-14 06:56] VITALS: BP 145/63
--- NOTE | 2018-12-14 07:33 | Discharge Summary ---
- NOTES TO OUTPATIENT PROVIDER Notes to Outpatient Provider: Recurrent symptomatic anemia, underwent push enteroscopy with APC of AVMs. Transfused 2u prbc with good improvement. Orders not resulted at time of discharge: Pending orders 12/12/18 14:00 Culture,Urine [RM] Stat Date of Encounter: 12/14/18 Time of Encounter: 07:25 Hospital course: Dear Doctors, I recently had the opportunity to care for this patient during their recent hospital stay at [facility]. Michelle Monroy is a 88 F w hx HTN, hypothyroidism, GERD and reflux esophagitis, hx Crohn's, who presented at time of admission with worsening fatigue. In the ED, she was found to have Hb 6.6, concerning for symptomatic anemia. Of note, she was admitted two weeks ago for similar presentation, transfused 2u prbc, and underwent EGD and colon which were unremarkable. 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 Given another 1u prbc with good improvement, and thus patient discharged to outpatient follow up with GI for capsule endoscopy. Dx: severe acute on chronic anemia 2/2 slow GI bleed Pertinent tests/consults: GI consult and push enteroscopy Follow up: PCP 1 week, GI 1-2 weeks for capsule endoscopy Tests pending: none Med changes: stop ASA 81 Mental status: awake, fully oriented Code status: DNRCC-A / DNI It has been my pleasure participating in this patient's care. Please contact me with any questions or concerns regarding their hospital stay. Sincerely, Doug Batres MD - Discharge Medications Prescriptions: Continued Lisinopril [Zestril] 10 mg PO DAILY Omeprazole [PriLOSEC] 40 mg PO DAILY #30 cap Ondansetron ODT [Zofran ODT] 4 mg SL ONCE Levothyroxine [Synthroid] 50 mcg PO DAILY Discontinued Aspirin [[place] Aspirin EC] 81 mg PO DAILY Home Medications: Lisinopril [Zestril] 10 mg PO DAILY 11/28/18 [History] Omeprazole [PriLOSEC] 40 mg PO DAILY #30 cap 12/02/18 [Rx] Levothyroxine [Synthroid] 50 mcg PO DAILY 12/12/18 [History] Ondansetron ODT [Zofran ODT] 4 mg SL ONCE 12/12/18 [History] Allergies/Adverse Reactions: Allergy/AdvReac Type Severity Reaction Status Date / Time No Known Allergies Allergy Verified 11/28/18 15:03 Date of admission: 12/12/18 15:58 Primary care physician: PCP NONE Consults: 12/12/18 17:45 Consult to Gastroenterology [CONS] Routine Consulting Provider: Gastroenterology Corinne Reason for Consult: recurrent anemia Call Completed: No 12/12/18 17:46 Consult to Physical Therapy [CONS] Routine Comment: Evaluate, develop and implement POC Reason for Consult: weakness 2/2 anemia Does patient have active BEDREST order?: No Is patient medically & hemodynamically stable?: Yes - Constitutional Vitals: Temp Pulse Resp BP Pulse Ox 98.5 F 87 15 145/63 93 12/14/18 06:54 12/14/18 06:54 12/14/18 06:54 12/14/18 06:54 12/14/18 06:54 Exam: General: NAD, good eye contact, relatively well appearing, elderly Thoracic: Normal breath sounds b/l, no wheezing or crackles Cardio: Normal S1 and S2, regular rate and rhythm Abdomen: Soft, nontender Extremities: Warm, well perfused. DP pulses 2+ b/l. No edema Skin: Intact. No rashes, bruises, or ulcers Neuro: Awake, fully oriented. Good memory. Speech fluent. - Patient Status Disposition: Home, Self-Care Condition: Fair Functional capacity at discharge: independent ambulation Overall status at discharge: patient is progressing back to baseline - Discharge Instructions Instructions: Urinary Tract Infection in Women (DC) Follow Up With: Nilson Joseph MD [Non-Partnered Physician] - (The patient will need to call the office to schedule a follow up appointment. ) Calista Mcmillan MD [Partnered Physician] - (web-requested, the office will call the patient to schedule a follow up appointment. 1-2 weeks) - Diet and Activity Activity: resume usual activities as tolerated Diet: advance to your usual diet
[2018-12-14 08:00] LABS: Hematocrit 24.9 % (35.3-44.9); Hemoglobin 7.9 g/dL (11.5-15.4)
--- NOTE | 2018-12-19 09:34 | Emergency Department Note ---
Disposition Clinical Impression: Low hemoglobin GI bleed Qualifiers: GI bleed type/associated pathology: unspecified gastrointestinal hemorrhage type Qualified Code(s): K92.2 - Gastrointestinal hemorrhage, unspecified UTI (urinary tract infection) Qualifiers: Urinary tract infection type: acute cystitis Hematuria presence: without hematuria Qualified Code(s): N30.00 - Acute cystitis without hematuria Disposition: Admitted As Inpatient Condition: Fair Time of Disposition: 14:31 General Adult HPI - General Chief complaint: ED Weakness Stated complaint: weakness, fatigue Time Seen by Provider: 12/12/18 13:15 Source: patient Mode of arrival: ambulatory Limitations: no limitations - History of Present Illness Pain Scale: 0 - Related Data Home Medications Medication Instructions Recorded Confirmed Lisinopril [Zestril] 10 mg PO DAILY 11/28/18 12/12/18 Levothyroxine [Synthroid] 50 mcg PO DAILY 12/12/18 12/12/18 Ondansetron ODT [Zofran ODT] 4 mg SL ONCE 12/12/18 12/12/18 Previous Rx's Medication Instructions Recorded Omeprazole [PriLOSEC] 40 mg PO DAILY #30 cap 12/02/18 Allergies Allergy/AdvReac Type Severity Reaction Status Date / Time No Known Allergies Allergy Verified 11/28/18 15:03 Constitutional: Denies: fever, chills ENT ED: Denies: congestion Cardiovascular: Denies: chest pain, palpitations Respiratory: Denies: cough, dyspnea, wheezes Gastrointestinal: Denies: abdominal pain, nausea, vomiting Genitourinary: Denies: urgency Musculoskeletal: Denies: back pain Integumentary: Denies: rash, abrasion Neurological: Reports: weakness. Denies: headache, numbness, paresthesias, confusion, abnormal gait Psychiatric: Denies: anxiety Endocrine: Reports: fatigue Hematological/Lymphatic: Denies: easy bleeding, easy bruising Past Medical History - Past Medical History Medical history: Reports: GERD, hypertension, thyroid disease Surgical history: Reports: cholecystectomy, hysterectomy Psychiatric history: Reports: no psych history - Social History Smoking Status: Former smoker Smokeless Tobacco Status: No Alcohol use: Reports: occasionally Drug use: Reports: none Physical Exam - General Limitations: no limitations General appearance: alert, in no apparent distress Course Vital Signs Temperature 97.7 F 12/12/18 11:42 Pulse Rate 93 12/12/18 11:42 Respiratory Rate 15 12/12/18 11:42 Blood Pressure 145/78 12/12/18 11:42 O2 Sat by Pulse Oximetry 98 12/12/18 11:42 Temperature 98.5 F 12/14/18 06:54 Pulse Rate 87 12/14/18 06:54 Respiratory Rate 15 12/14/18 06:54 Blood Pressure 145/63 12/14/18 06:54 O2 Sat by Pulse Oximetry 93 12/14/18 07:58 Oxygen Delivery Oxygen Delivery Room Air Medical Decision Making - Lab Data Result diagrams: 12/14/18 07:39 12/13/18 04:00 Lab Results 12/12/18 12/12/18 12/12/18 Range/Units 12:06 12:06 12:06 WBC 7.6 (4.3-11.1) K/mcL RBC 2.42 L (3.82-4.97) M/mcL Hgb 6.6 L (11.5-15.4) g/dL Hct 21.2 L (35.3-44.9) % MCV 87.6 (83.0-100.0) fL MCH 27.3 L (28.0-33.3) pg MCHC 31.1 L (31.6-35.5) g/dL RDW 15.9 H (11.5-14.5) % Plt Count 256 (140-400) K/mcL MPV 10.6 (9.4-12.4) fL Immature Gran % 0.4 (0-4) % Seg Neutrophils % 67.9 % Lymphocytes % 24.6 % Monocytes % 5.8 % Eosinophils % 0.8 % Basophils % 0.5 % Neutrophils # 5.2 (1.6-8.9) K/mcL Lymphocytes # 1.9 (0.6-4.6) K/mcL Monocytes # 0.4 (0.0-1.3) K/mcL Eosinophils # 0.1 (0.0-0.6) K/mcL Basophils # 0.0 (0.0-0.2) K/mcL Reactive Lymphocytes Present A (Not Present) Platelet Estimate Normal (Normal) ESR 11 (0-15) mm/hr Sodium 137 (136-145) mEq/L Potassium 4.2 (3.5-5.1) mEq/L Chloride 102 (98-107) mEq/L Carbon Dioxide 25 (23-29) mEq/L BUN 19 (8-23) mg/dL Creatinine 0.80 (0.60-1.20) mg/dL Est GFR ( Amer) > 60 (> 60) Est GFR (Non-Af Amer) > 60 (> 60) BUN/Creatinine Ratio 24 (6-26) Glucose 130 H (70-105) mg/dL Calculated Osmolality 288 (280-300) Calcium 9.0 (8.6-10.3) mg/dL Total Bilirubin 0.3 (0.3-1.0) mg/dL AST 11 L (13-39) Units/L ALT 9 (7-52) Units/L Alkaline Phosphatase 82 (34-104) Units/L Troponin I < 0.03 (< 0.04) ng/mL C-Reactive Protein < 5 (Less than 10) mg/L Serum Total Protein 6.2 L (6.4-8.9) g/dL Albumin 3.8 (3.5-5.7) g/dL Globulin 2.4 (2.4-3.5) g/dL Albumin/Globulin Ratio 1.6 (1.1-2.2) Urine Color (Yellow) Urine Clarity (Clear) Urine pH (5.0-8.0) pH Units Ur Specific [place] (1.010-1.025) Urine Protein (Neg-Trace) mg/dL Urine Glucose (UA) (Normal) mg/dL Urine Ketones (Negative) mg/dL Urine Blood (Negative) Urine Nitrite (Negative) Urine Bilirubin (Negative) Urine Urobilinogen (Normal) mg/dL Ur Leukocyte Esterase (Negative) Urine Microscopic RBC (0-3) per hpf Urine Microscopic WBC (0-3) per hpf Ur Squamous Epith Cells (None-Few) per lpf Urine Bacteria (None-Few) per hpf Hyaline Casts (None-Few) per lpf Ur Culture Indicated? (NO) Stool Occult Bld Scrn (Negative) Blood Type Antibody Screen Crossmatch 12/12/18 12/12/18 12/12/18 Range/Units 13:40 14:00 14:10 WBC (4.3-11.1) K/mcL RBC (3.82-4.97) M/mcL Hgb (11.5-15.4) g/dL Hct (35.3-44.9) % MCV (83.0-100.0) fL MCH (28.0-33.3) pg MCHC (31.6-35.5) g/dL RDW (11.5-14.5) % Plt Count (140-400) K/mcL MPV (9.4-12.4) fL Immature Gran % (0-4) % Seg Neutrophils % % Lymphocytes % % Monocytes % % Eosinophils % % Basophils % % Neutrophils # (1.6-8.9) K/mcL Lymphocytes # (0.6-4.6) K/mcL Monocytes # (0.0-1.3) K/mcL Eosinophils # (0.0-0.6) K/mcL Basophils # (0.0-0.2) K/mcL Reactive Lymphocytes (Not Present) Platelet Estimate (Normal) ESR (0-15) mm/hr Sodium (136-145) mEq/L Potassium (3.5-5.1) mEq/L Chloride (98-107) mEq/L Carbon Dioxide (23-29) mEq/L BUN (8-23) mg/dL Creatinine (0.60-1.20) mg/dL Est GFR ( Amer) (> 60) Est GFR (Non-Af Amer) (> 60) BUN/Creatinine Ratio (6-26) Glucose (70-105) mg/dL Calculated Osmolality (280-300) Calcium (8.6-10.3) mg/dL Total Bilirubin (0.3-1.0) mg/dL AST (13-39) Units/L ALT (7-52) Units/L Alkaline Phosphatase (34-104) Units/L Troponin I (< 0.04) ng/mL C-Reactive Protein (Less than 10) mg/L Serum Total Protein (6.4-8.9) g/dL Albumin (3.5-5.7) g/dL Globulin (2.4-3.5) g/dL Albumin/Globulin Ratio (1.1-2.2) Urine Color Yellow (Yellow) Urine Clarity Clear (Clear) Urine pH 6.0 (5.0-8.0) pH Units Ur Specific [place] 1.013 (1.010-1.025) Urine Protein Negative (Neg-Trace) mg/dL Urine Glucose (UA) Normal (Normal) mg/dL Urine Ketones Negative (Negative) mg/dL Urine Blood Negative (Negative) Urine Nitrite Positive A (Negative) Urine Bilirubin Negative (Negative) Urine Urobilinogen Normal (Normal) mg/dL Ur Leukocyte Esterase Small H (Negative) Urine Microscopic RBC 0-3 (0-3) per hpf Urine Microscopic WBC 5-15 H (0-3) per hpf Ur Squamous Epith Cells Many H (None-Few) per lpf Urine Bacteria Many H (None-Few) per hpf Hyaline Casts None Seen (None-Few) per lpf Ur Culture Indicated? YES A (NO) Stool Occult Bld Scrn Negative (Negative) Blood Type O NEGATIVE Antibody Screen NEGATIVE Crossmatch See Detail Attestation Statement - Attestation Attestation: I examined this patient and my medical decision-making was reviewed with the Resident Physician. I agree with the documented findings, disposition and treatment plan as described except to the extent set forth below. Patient presents hemodynamically stable with symptomatic anemia. Transfuse in the emergency department and admitted. I was present for the resident's EKG interpretation.
== END 2018-12-14 11:18 | disposition home or self-care (01) ==
LOC: 3ANU 11:40 → EMEROOARM 11:40 → SUATTDRO 15:58 → 3ANU 16:50
PROVIDERS: ADMIT Internal Medicine; ATTEND Internal Medicine

== ENCOUNTER 2019-04-14 00:53 | Observation (INO) ==
[2019-04-14] MEDS ORDERED: Naloxone 0.4 MG/ML INJ IVP PRN (04:11)
[2019-04-14 05:16] LABS: Basophils % 0.6 %; Eosinophils # 0.1 K/mcL (0.0-0.6); Eosinophils % 0.9 %; Hematocrit 32.5 % (35.3-44.9); Hemoglobin 9.9 g/dL (11.5-15.4); Immature Granulocytes % 0.4 % (0-4); Lymphocytes # 1.2 K/mcL (0.6-4.6); Lymphocytes % 16.7 %; Mean Corpuscular HGB Conc 30.5 g/dL (31.6-35.5); Mean Corpuscular Hemoglobin 25.8 pg (28.0-33.3); Mean Corpuscular Volume 84.6 fL (83.0-100.0); Mean Platelet Volume 10.4 fL (9.4-12.4); Monocytes # 0.5 K/mcL (0.0-1.3); Monocytes % 6.9 %; Neutrophils # 5.2 K/mcL (1.6-8.9); Platelet Count 171 K/mcL (140-400); Red Blood Count 3.84 M/mcL (3.82-4.97); Segmented Neutrophils % 74.5 %
[2019-04-14 05:17] LABS: Prothrombin Time 11.7 Seconds (9.4-12.1)
[2019-04-14] MEDS: Ringers Solution, Lactated 1,000 ML IVC SCH ×2 (05:29→09:18)
[2019-04-14] MEDS: *HR* Heparin 5,000 UNIT/ML VIAL SQ SCH ×2 (05:30→13:20)
[2019-04-14 05:33] LABS: Albumin 3.7 g/dL (3.5-5.7); Albumin/Globulin Ratio 1.5 (1.1-2.2); Bilirubin,Total 0.4 mg/dL (0.3-1.0); Calcium 8.3 mg/dL (8.6-10.3); Globulin 2.4 g/dL (2.4-3.5); Potassium 4.1 mEq/L (3.5-5.1); Total Protein 6.1 g/dL (6.4-8.9)
[2019-04-14] MEDS: 0.9 % Sodium Chloride 1,000 ML IVC SCH ×2 (06:49→15:02)
[2019-04-14] MEDS ORDERED: Piperacillin/Tazobactam 3.375 GM in 0.9 % Sodium Chloride Mini Bag 100 ML IVPB SCH (08:00)
[2019-04-14] MEDS ORDERED: levoFLOXacin 500 MG/100 ML 500 MG/100 ML BAG IVPB SCH (09:00)
[2019-04-14] MEDS: Pantoprazole 40 MG VIAL IVP SCH (09:30)
[2019-04-14 13:19] LABS: Basophils % 0.5 %; Eosinophils # 0.1 K/mcL (0.0-0.6); Eosinophils % 0.9 %; Hematocrit 32.8 % (35.3-44.9); Hemoglobin 10.3 g/dL (11.5-15.4); Immature Granulocytes % 0.4 % (0-4); Lymphocytes % 12.1 %; Mean Corpuscular HGB Conc 31.4 g/dL (31.6-35.5); Mean Corpuscular Hemoglobin 25.4 pg (28.0-33.3); Mean Platelet Volume 9.9 fL (9.4-12.4); Monocytes # 0.5 K/mcL (0.0-1.3); Monocytes % 6.7 %; Neutrophils # 6.4 K/mcL (1.6-8.9); Platelet Count 163 K/mcL (140-400); Red Blood Count 4.05 M/mcL (3.82-4.97); Red Cell Distribution Width 18.1 % (11.5-14.5); Segmented Neutrophils % 79.4 %; White Blood Count 8.1 K/mcL (4.3-11.1)
[2019-04-14 20:14] LABS: Basophils % 0.5 %; Eosinophils # 0.1 K/mcL (0.0-0.6); Hematocrit 31.2 % (35.3-44.9); Hemoglobin 9.8 g/dL (11.5-15.4); Immature Granulocytes % 0.1 % (0-4); Lymphocytes # 1.3 K/mcL (0.6-4.6); Lymphocytes % 16.8 %; Mean Corpuscular HGB Conc 31.4 g/dL (31.6-35.5); Mean Corpuscular Hemoglobin 25.3 pg (28.0-33.3); Mean Corpuscular Volume 80.4 fL (83.0-100.0); Monocytes # 0.5 K/mcL (0.0-1.3); Monocytes % 6.4 %; Neutrophils # 5.7 K/mcL (1.6-8.9); Platelet Count 148 K/mcL (140-400); Red Blood Count 3.88 M/mcL (3.82-4.97); Red Cell Distribution Width 18.2 % (11.5-14.5); Segmented Neutrophils % 75.2 %; White Blood Count 7.6 K/mcL (4.3-11.1)
[2019-04-15 00:01] LABS: Adenovirus Not Detected (Not Detect); Bordetella Pertussis Not Detected (Not Detect); Chlamydophila pneumoniae Not Detected (Not Detect); Coronavirus 229E Not Detected (Not Detect); Coronavirus HKU1 Not Detected (Not Detect); Coronavirus NL63 Not Detected (Not Detect); Coronavirus OC43 Not Detected (Not Detect); Human Metapneumovirus Not Detected (Not Detect); Human Rhinovirus/Enterovirus Not Detected (Not Detect); Influenza A Subtype 2009 H1 Not Detected (Not Detect); Influenza B Not Detected (Not Detect); Mycoplasma pneumoniae Not Detected (Not Detect); Parainfluenza Virus 1 Not Detected (Not Detect); Parainfluenza Virus 2 Not Detected (Not Detect); Parainfluenza Virus 3 Not Detected (Not Detect); Parainfluenza Virus 4 Not Detected (Not Detect); Respiratory Syncytial Virus Not Detected (Not Detect)
[2019-04-15 05:50] LABS: Basophils % 0.3 %; Eosinophils # 0.1 K/mcL (0.0-0.6); Eosinophils % 1.4 %; Hemoglobin 10.1 g/dL (11.5-15.4); Immature Granulocytes % 0.1 % (0-4); Lymphocytes # 1.5 K/mcL (0.6-4.6); Lymphocytes % 17.7 %; Mean Corpuscular HGB Conc 30.6 g/dL (31.6-35.5); Mean Corpuscular Hemoglobin 25.8 pg (28.0-33.3); Mean Corpuscular Volume 84.2 fL (83.0-100.0); Mean Platelet Volume 10.5 fL (9.4-12.4); Monocytes # 0.5 K/mcL (0.0-1.3); Monocytes % 5.3 %; Neutrophils # 6.5 K/mcL (1.6-8.9); Platelet Count 162 K/mcL (140-400); Red Blood Count 3.92 M/mcL (3.82-4.97); Red Cell Distribution Width 18.2 % (11.5-14.5); Segmented Neutrophils % 75.2 %; White Blood Count 8.6 K/mcL (4.3-11.1)
[2019-04-15 05:52] LABS: INR 1.1; Prothrombin Time 12.8 Seconds (9.4-12.1)
[2019-04-15 06:09] LABS: Alanine Aminotransferase 8 Units/L (7-52); Albumin 3.2 g/dL (3.5-5.7); Albumin/Globulin Ratio 1.3 (1.1-2.2); Alkaline Phosphatase 74 Units/L (34-104); Aspartate Amino Transferase 12 Units/L (13-39); BUN/Creatinine Ratio 8 (6-26); Bilirubin,Total 0.4 mg/dL (0.3-1.0); Blood Urea Nitrogen 8 mg/dL (8-23); Calcium 8.3 mg/dL (8.6-10.3); Carbon Dioxide 22 mEq/L (23-29); Chloride 109 mEq/L (98-107); Globulin 2.4 g/dL (2.4-3.5); Glucose 92 mg/dL (70-105); Osmolality,Calculated 288 (280-300); Potassium 3.5 mEq/L (3.5-5.1); Sodium 140 mEq/L (136-145); Total Protein 5.6 g/dL (6.4-8.9); eGFR For African Americans > 60 (> 60); eGFR For Non-African Americans 54 (> 60)
[2019-04-15 06:18] LABS: Magnesium 1.8 mg/dL (1.6-2.6)
[2019-04-15 06:31] LABS: Folate 12.1 ng/mL (3.0-16.0)
[2019-04-15 06:32] LABS: Vitamin B12 > 1500 pg/mL (250-1100)
[2019-04-15] MEDS ORDERED: Iron Sucrose Complex 250 MG in 0.9 % Sodium Chloride 250 ML IVPB SCH (09:00)
[2019-04-15] MEDS: Pantoprazole 40 MG VIAL IVP SCH (09:39)
[2019-04-16 07:10] LABS: Basophils % 0.6 %; Eosinophils # 0.1 K/mcL (0.0-0.6); Eosinophils % 1.9 %; Hematocrit 30.4 % (35.3-44.9); Hemoglobin 9.5 g/dL (11.5-15.4); Immature Granulocytes % 0.6 % (0-4); Lymphocytes # 1.1 K/mcL (0.6-4.6); Mean Corpuscular HGB Conc 31.3 g/dL (31.6-35.5); Mean Corpuscular Hemoglobin 25.7 pg (28.0-33.3); Mean Corpuscular Volume 82.2 fL (83.0-100.0); Mean Platelet Volume 10.3 fL (9.4-12.4); Monocytes # 0.4 K/mcL (0.0-1.3); Monocytes % 5.9 %; Neutrophils # 4.8 K/mcL (1.6-8.9); Platelet Count 156 K/mcL (140-400); White Blood Count 6.5 K/mcL (4.3-11.1)
[2019-04-16 07:34] LABS: BUN/Creatinine Ratio 6 (6-26); Blood Urea Nitrogen 5 mg/dL (8-23); Calcium 8.4 mg/dL (8.6-10.3); Carbon Dioxide 23 mEq/L (23-29); Chloride 107 mEq/L (98-107); Glucose 94 mg/dL (70-105); Magnesium 1.8 mg/dL (1.6-2.6); Osmolality,Calculated 289 (280-300); Potassium 3.5 mEq/L (3.5-5.1); Sodium 141 mEq/L (136-145); eGFR For African Americans > 60 (> 60); eGFR For Non-African Americans 60 (> 60)
[2019-04-16] MEDS: Pantoprazole 40 MG VIAL IVP SCH (09:24)
[2019-04-16 10:15] VITALS: BP 115/57
== END 2019-04-16 12:40 | disposition home or self-care (01) ==
LOC: 3ANU → SUATTDRO 02:50
PROVIDERS: ADMIT Internal Medicine; ATTEND Internal Medicine

== ENCOUNTER 2019-05-19 09:39 | Observation (INO) ==
[2019-05-19] MEDS ORDERED: Acetaminophen 325 MG TABLET PO PRN (12:04)
[2019-05-19] MEDS ORDERED: Ondansetron 4 MG/2 ML VIAL IVP PRN (12:04)
[2019-05-19] MEDS ORDERED: MOM Conc 10 ML UD.LIQ PO PRN (12:04)
[2019-05-19] MEDS ORDERED: Naloxone 0.4 MG/ML INJ IVP PRN (12:04)
[2019-05-19] MEDS ORDERED: *HR* Promethazine 25 MG/ML VIAL IVP PRN (12:04)
[2019-05-19] MEDS ORDERED: Mag Hydrox/Al Hydrox/Simeth 30 ML UDC PO PRN (12:04)
[2019-05-19] MEDS: Ringers Solution, Lactated 1,000 ML IVC SCH (13:07)
[2019-05-19 14:30] LABS: Hematocrit 37.8 % (35.3-44.9); Hemoglobin 11.3 g/dL (11.5-15.4)
[2019-05-19] MEDS: Pantoprazole 40 MG VIAL IVP SCH (17:05)
[2019-05-19 18:51] LABS: Hematocrit 35.2 % (35.3-44.9); Hemoglobin 10.8 g/dL (11.5-15.4)
[2019-05-20] MEDS: Ringers Solution, Lactated 1,000 ML IVC SCH (03:06)
[2019-05-20] MEDS: Pantoprazole 40 MG VIAL IVP SCH (05:38)
[2019-05-20 05:41] LABS: Basophils # 0.1 K/mcL (0.0-0.2); Basophils % 0.8 %; Eosinophils # 0.1 K/mcL (0.0-0.6); Eosinophils % 2.2 %; Hematocrit 35.7 % (35.3-44.9); Hemoglobin 10.9 g/dL (11.5-15.4); Immature Granulocytes % 0.2 % (0-4); Lymphocytes # 1.3 K/mcL (0.6-4.6); Lymphocytes % 20.8 %; Mean Corpuscular HGB Conc 30.5 g/dL (31.6-35.5); Mean Corpuscular Hemoglobin 26.9 pg (28.0-33.3); Mean Corpuscular Volume 88.1 fL (83.0-100.0); Mean Platelet Volume 10.7 fL (9.4-12.4); Monocytes # 0.4 K/mcL (0.0-1.3); Monocytes % 6.4 %; Neutrophils # 4.5 K/mcL (1.6-8.9); Platelet Count 157 K/mcL (140-400); Red Blood Count 4.05 M/mcL (3.82-4.97); Red Cell Distribution Width 19.8 % (11.5-14.5); Segmented Neutrophils % 69.6 %; White Blood Count 6.4 K/mcL (4.3-11.1)
[2019-05-20 05:54] LABS: BUN/Creatinine Ratio 15 (6-26); Blood Urea Nitrogen 15 mg/dL (8-23); Calcium 8.6 mg/dL (8.6-10.3); Carbon Dioxide 28 mEq/L (23-29); Chloride 107 mEq/L (98-107); Glucose 80 mg/dL (70-105); Osmolality,Calculated 288 (280-300); Potassium 4.2 mEq/L (3.5-5.1); Sodium 139 mEq/L (136-145); eGFR For African Americans > 60 (> 60); eGFR For Non-African Americans 52 (> 60)
[2019-05-20 07:53] VITALS: BP 160/71
== END 2019-05-20 09:57 | disposition home or self-care (01) ==
LOC: 3BNU
PROVIDERS: ADMIT Internal Medicine; ATTEND Internal Medicine